=== PATIENT | female | born 1940 | race Caucasian/White ===

== ENCOUNTER 2018-10-14 22:32 | Inpatient (IN) | payer OTHER ==
[~2018-10-14] VITALS: Ht 152.4 cm; Wt 82.8 kg
[2018-10-14 23:17] VITALS: BP 140/63; PULSE 78; RESP 22; Ht 152.4 cm; Wt 82.8 kg
[2018-10-15] VITALS (12 sets, daily range): BP systolic 111–128; BP diastolic 55–60; PULSE 75–95; RESP 16–24
[2018-10-15] MEDS ORDERED: NACL 0.9% 3 ML SYG IV SCH (00:30)
[2018-10-15] MEDS ORDERED: ONDANSETRON 4 MG INJ IV PRN (00:30)
[2018-10-15] MEDS ORDERED: ACETAMINOPHEN 325 MG TAB PO PRN (00:30)
--- NOTE | 2018-10-15 00:35 | HP ---
Date/Time of Note Date/Time of Note DATE: 10/15/18 TIME: 00:35 Assessment/Plan VTE Prophylaxis SCD applied (from Ns): Yes Pharmacological prophylaxis: NA/contraindicated Pharm contraindication: low risk/ambulating Assessment/Plan Hospital Course This is a 69-year female being admitted to the telemetry floor for: #1 acute on chronic asthma exacerbation: DuoNeb every 4 hours, IV Solu-Medrol for the first 24 hours followed by prednisone burst., continue home inhalers #2 suspect community-acquired pneumonia: Chest x-ray shows possible right-sided consolidation: Patient at the current time is afebrile. Levaquin 750 mg IV x 5 days, switch to p.o. as tolerated #3 Hypertension: Continue amlodipine #4 obesity: We will check hemoglobin A 1C, lipid panel, TSH 5 DVT GI prophylaxis: SCDs, Protonix Further treatment strategy will be implemented as per the clinical course. HPI/ROS Admit Date/Time Admit Date/Time Oct 14, 2018 at 22:32 Hx of Present Illness Chief complaint: Cough This is a 77-year-old female who presented originally to [facility] to [place] with complaints of cough times 3 days. She reported was a productive cough. SHe did report shortness of breath and productive of yellow sputum. Denies any fever chills or chest pain. Patient was noted to have wheezing on examination. Pertinent laboratory findings: White blood cells 10.8/hemoglobin 12.6/hematocrit 37.3/platelet count 324 Sodium 130/potassium 2.5/chloride 98/carbon dioxide 29/BUN 11/creatinine 0.5 CPK 63 troponin less than 0.06 patient did receive albuterol and Levaquin in the ED EKG: Normal sinus rhythm at approximately [address] or T wave abnormalities noted for any acute ischemia. Allergies: NKDA Medications: See NOV ROS Const: As per HPI Eyes : No pain discharge or redness or change in visual acuity ENT: No pain, sore throat, congestion, congestion, dysphagia or discharge Respiratory: As per HPI Cardiovascular: No chest pain, palpitation, PND, or edema GI : no change in appetite, abdominal pain, nausea, vomiting, diarrhea, constipation, or change in the color his stool Genitourinary: No dysuria, hematuria, flank pain , discharge or CVA tenderness Musculoskeletal: No joint pain, back pain, neck pain, restricted range of motion in neck or joints Skin: No rash, bruising or hives Neuro: No headache, dizziness, syncope, seizure, focal weakness Endocrine: No polyuria, polydipsia, temperature intolerance Psych: No hallucination, depression, anxiety or suicidal ideation PMH/Family/Social Past Medical History Hypertension, asthma Coded Allergies: No Known Allergy (Unverified , 10/15/18) Past Surgical History Right eye cataract surgery Family History Significant Family History: no pertinent family hx Social History Alcohol Use: none Smoking Status: Never smoker Drug Use: none Exam/Review of Systems Vital Signs Vitals Temp 98.5 Heart rate 77 Respirations 22 BP 140/63 SPO2 97% on 3 L Exam Exam General: Patient is a pleasant female currently lying in bed with productive cough and wheezing HEENT: Atraumatic, normocephalic. The pupils are equal, round and reactive. Extraocular motor are intact Neck: Supple with full range of motion. No rigidity or meningismus Chest: Nontender Lungs: Coarse breath sounds bilaterally, mild expiratory wheezes Heart: Normal S1-S2, Regular rhythm and rate. Abdomen: Soft , nontender, nondistended , bowel sounds are present. No guarding no rebound tenderness , No masses or organomegaly. No costovertebral temporal angle mass Extremities: Normal to inspection, no edema no cyanosis Neurologic: Normal mental status, speech normal, cranial nerves II through XII are intact, motor and sensory are intact Additional Comments PROCEDURE: Chest x-ray CLINICAL INDICATION: COPD. TECHNIQUE: VIEWS: 1 COMPARISON: None FINDINGS: SUPPORT DEVICES: None CARDIAC AND MEDIASTINAL SILHOUETTES: Cardiomegaly with aortic atherosclerosis. LUNGS AND PLEURAL SPACE: Dense opacification of the right infrahilar region through the base representing atelectasis or consolidation. . Mild elevation of the left diaphragm with adjacent compressive subsegmental atelectasis. No CHF or pleural effusion PNEUMOTHORAX: None. OSSEOUS STRUCTURES: Unremarkable. IMPRESSION: 1. Right infrahilar through base atelectasis or consolidation. 2. Elevated left diaphragm with adjacent compressive subsegmental atelectasis. 3. Cardiomegaly with aortic atherosclerosis. RPTAT: HRSR Wen Kolb Physician Date Time Electronically viewed and signed by Wen Kolb, Physician on 10/15/2018 02:22 RR/ CC: OLENA LOUISE [phone] OLENA LOUISE Oct 15, 2018 00:35
[2018-10-15] MEDS ORDERED: DICL50TA11 PO (00:41)
[2018-10-15] MEDS ORDERED: FLUT1AER4 IH (00:41)
[2018-10-15] MEDS ORDERED: AMLO-145 PO (00:41)
[2018-10-15] MEDS ORDERED: ALBUTEROL/IPRATROPIUM (NEB) 3 ML AMP HHN PRN (01:00)
[2018-10-15] MEDS: ALBUTEROL/IPRATROPIUM (NEB) 3 ML AMP HHN SCH ×6 (01:04→22:47)
--- NOTE | 2018-10-15 01:23 | NUR ---
Admission note: Arrival time: 2244 Blood cultures drawn at: 0045 Home meds reconciled: Amlodipine, Steroid inhaler, pain medications. A&Ox4, tristanian speaking, expiratory wheezing. RT PRN duoneb ordered. NC 3 LPM, saturating 95%, otherwise assessment is unremarkable. Hx asthma noted. Awaiting blood cultures for administration of Levofloxacin therapy IV.
[2018-10-15] MEDS: METHYLPREDNISOLONE 40 MG INJ IV SCH ×4 (01:50→22:49)
[2018-10-15] MEDS: LEVOFLOXACIN 750MG/D5W (PMX) 150 ML IVPB SCH (03:02)
[2018-10-15] MEDS ORDERED: PANTOPRAZOLE 40 MG INJ IV SCH (06:00)
--- NOTE | 2018-10-15 06:59 | NUR ---
EOSS N: A&Ox4, R: Currently NC 4LPM, saturating on 92-95%, mild expiratory wheezing, improving with respiratory treatments. CV: Unremarkable. Afebrile. GI: Cardiac diet : Ambulates 1x assist to toilet CXR taken, blood cultures x2, broad spectrum abx started. Bed in locked and low position. All of patient's needs attended to. Will endorse to AM nurse. POC: Continue IV abx, respiratory treatments.
[2018-10-15] MEDS: FLUTICASONE/VILANTEROL 100-25 INH SCH (08:40)
[2018-10-15] MEDS: AMLODIPINE 5 MG TAB PO SCH (08:40)
[2018-10-15] MEDS: DICLOFENAC (EC) 25 MG TAB PO SCH ×2 (08:40→20:50)
--- NOTE | 2018-10-15 11:09 | NUR ---
SW: AHCD & INITIAL PSYCHOSOCIAL ASSESSMENT SW met with 77-year-old Telugu speaking female and her with road machine runner at bedside regarding AHCD. Patient denies having an AHCD, and she verbally designated her Ramez ([phone]/ [phone]) as her primary surrogate spokesperson, and her grandson Tate Dhillon ([phone]) as her secondary surrogate spokesperson. Patient states she lives with her and grandson Tate at [address] [place] [address] #[place] [address]. States that she is retired and receives SS benefits. Patient states that she is independent at home with ADL's, but states she receives informal care from her spouse, daughter in law and grandson. States that her primary mode of transportation is medical transport. Patient denies having any questions or concerns at this time. Supervising Producer remains available as needed throughout patient's treatment process.
--- NOTE | 2018-10-15 13:41 | PN ---
Date/Time of Note Date/Time of Note DATE: 10/15/18 TIME: 13:35 Assessment/Plan VTE Prophylaxis Risk score (from Ns)>0 risk: 5 SCD applied (from Ns): Yes Pharmacological prophylaxis: LMWH Lines/Catheters IV Catheter Type (from Nrs): Peripheral IV Urinary Cath still in place: No Assessment/Plan Assessment/Plan 1. Community acquired pneumonia, on levaquin 2. Asthma, probably COPD, on neb, levaquin and prednisone 3. HTN, controlled with norvasc 4. DVT prophylaxis: lovenox Result Diagram: 10/15/189910/15/1899 Results 24hrs Laboratory Tests Test 10/15/18 01:00 10/15/18 02:00 White Blood Count 9.2 Red Blood Count 3.89 L Hemoglobin 12.0 Hematocrit 36.3 L Mean Corpuscular Volume 93.3 Mean Corpuscular Hemoglobin 30.8 Mean Corpuscular Hemoglobin Concent 33.1 Red Cell Distribution Width 12.7 Platelet Count 274 Mean Platelet Volume 8.9 Immature Granulocytes % 0.400 Neutrophils % 61.6 Lymphocytes % 29.6 Monocytes % 7.2 Eosinophils % 1.1 Basophils % 0.1 Nucleated Red Blood Cells % 0.0 Immature Granulocytes # 0.040 H Neutrophils # 5.6 Lymphocytes # 2.7 Monocytes # 0.7 Eosinophils # 0.1 Basophils # 0.0 Nucleated Red Blood Cells # 0.0 Sodium Level 141 Potassium Level 3.7 Chloride Level 107 Carbon Dioxide Level 25 Anion Gap 9 Blood Urea Nitrogen 12 Creatinine 0.49 Est Glomerular Filtrat Rate mL/min Glucose Level 103 Hemoglobin A1c 5.6 Lactic Acid Level 0.8 Calcium Level 8.9 Magnesium Level 2.1 Total Bilirubin 0.4 Direct Bilirubin 0.00 Indirect Bilirubin 0.4 Aspartate Amino Transf (AST/SGOT) 24 Alanine Aminotransferase (ALT/SGPT) 18 Alkaline Phosphatase 88 Total Protein 7.4 Albumin 3.7 Globulin 3.70 H Albumin/Globulin Ratio 1.00 Triglycerides Level 56 Cholesterol Level 192 LDL Cholesterol, Calculated 133 HDL Cholesterol 48 Cholesterol/HDL Ratio 4.0 Thyroid Stimulating Hormone (TSH) 1.890 Urine Color YELLOW Urine Clarity SLIGHTLY CLOUDY A Urine pH 5.0 Urine Specific Longs 1.025 Urine Ketones NEGATIVE Urine Nitrite NEGATIVE Urine Bilirubin NEGATIVE Urine Urobilinogen 2+ H Urine Leukocyte Esterase NEGATIVE Urine Microscopic RBC 5 Urine Microscopic WBC 8 H Urine Squamous Epithelial Cells FEW Urine Mucus FEW A Urine Hemoglobin 2+ H Urine Glucose NEGATIVE Urine Total Protein NEGATIVE Subjective 24 Hr Interval Summary Free Text/Dictation shortness of breath, cough with yellowish sputum Exam/Review of Systems Vital Signs Vitals Vital Signs Date Temp Pulse Resp B/P (MAP) Pulse Ox O2 O2 Flow FiO2 Time Delivery Rate 10/15/18 91 20 94 Nasal 4.0 13:29 Cannula 10/15/18 98.0 118/58 11:31 (78) Intake and Output 10/14/18 10/14/18 10/15/18 1515:00 23:00 07:00 IntakeIntake Total 150 ml BalanceBalance 150 ml Exam Constitutional: alert, oriented, well developed Psych: no complaints, nl mood/affect Head: normocephalic, atraumatic Eyes: nl conjunctiva, EOMI, nl lids, nl sclera, PERRL ENMT: nl external ears & nose, nl lips & teeth, nl nasal mucosa & septum Neck: supple, non-tender Respiratory: crackles/rales, wheezing Cardiovascular: regular rate and rhythm, nl pulses; No bruits, No diastolic murmur, No edema, No gallop, No irregular rhythm, No jugular venous distention (JVD), No murmurs/extra sounds, No rub, No systolic murmur, No S3, No S4, No other Gastrointestinal: soft, nl liver, spleen, non-tender Musculoskeletal: nl extremities to inspection; No joint tenderness, No muscle tone, No muscle weakness, No range of motion, No spine non-tender, No swelling, No other Extremities: normal pulses; No calf tenderness, No cyanosis, No clubbing, No edema, No pitting pedal edema, No palpable cord, No tenderness, No other Neurological: 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 intact, nl mental status, nl speech, nl strength Medications Medications Current Medications IV Flush (NS 3 ml) 3 ml PER PROTOCOL IV ; Start 10/15/18 at 00:30 Ondansetron HCl (Zofran Inj) 4 mg Q6H PRN IV NAUSEA AND/OR VOMITING; Start 10/15/18 at 00:30 Acetaminophen (Tylenol Tab) 650 mg Q6H PRN PO PAIN LEVEL 1-3 OR FEVER; Start 10/15/18 at 00:30 Docusate Sodium (Colace) 100 mg Q12H PRN PO CONSTIPATION; Start 10/15/18 at 00:30 Bisacodyl (Dulcolax) 5 mg DAILY PRN PO CONSTIPATION; Start 10/15/18 at 00:30 Pantoprazole (Protonix Iv) 40 mg DAILY@06 IV Last administered on 10/15/18at 05:56; Admin Dose 40 MG; Start 10/15/18 at 06:00 Albuterol/ Ipratropium (Duoneb) 3 ml Q4H RESP THERAPY PRN HHN WHEEZING; Start 10/15/18 at 01:00 Albuterol/ Ipratropium (Duoneb) 3 ml Q4H RESP THERAPY HHN Last administered on 10/15/18at 13:29; Admin Dose 3 ML; Start 10/15/18 at 01:00 Methylprednisolone Sodium Succinate (Solu-Medrol) 30 mg Q8 IV Last administered on 10/15/18at 05:56; Admin Dose 30 MG; Start 10/15/18 at 01:00; Stop 10/16/18 at 00:59 Levofloxacin/ Dextrose 150 ml @ 100 mls/hr Q24H IVPB Last administered on 03:02; Admin Dose 100 MLS/HR; Start 10/15/18 at 02:00 Amlodipine Besylate (Norvasc) 5 mg DAILY PO Last administered on 10/15/18 08:40; Admin Dose 5 MG; Start 10/15/18 at 09:00 Diclofenac Sodium (Voltaren) 50 mg BID PO Last administered on 10/15/18at 08:40; Admin Dose 50 MG; Start 10/15/18 at 09:00 Fluticasone/ Vilanterol (Breo Ellipta 100-25 Mcg Inh) 1 inh DAILY INH Last administered on 10/15/18 08:40; Admin Dose 1 INH; Start 10/15/18 at 09:00 Prednisone (Prednisone) 40 mg DAILY PO ; Start 10/16/18 at 09:00; Stop 10/20/18 at 08:59 TONYA MENDEZ MD Oct 15, 2018 13:41
[2018-10-15] MEDS: ENOXAPARIN 30 MG/0.3 ML SYG SC SCH (14:14)
--- NOTE | 2018-10-15 19:00 | NUR ---
EOSS: . PT DX PNA.WHEEZING NOTED.PT ON O2 3L NC.ON INDUSTRIAL ROOFER THERAPY. ABLE TO AMBULATE TO BRP.ALL NEEDS MET.CONTINUE POC.
[2018-10-15] MEDS: DOCUSATE SODIUM 100 MG CAP PO PRN (20:49)
[2018-10-16] VITALS (12 sets, daily range): BP systolic 101–127; BP diastolic 50–62; PULSE 81–105; RESP 18–20
--- NOTE | 2018-10-16 01:40 | NUR ---
Nursing Note: Pt refuses bed alarm. Pt a/o X4 and has steady gait. Pt calls for assistance in disconnecting SCDs when she needs to go to the bathroom. teasel gig operator aware.
[2018-10-16] MEDS: ALBUTEROL/IPRATROPIUM (NEB) 3 ML AMP HHN SCH ×6 (01:58→21:44)
[2018-10-16] MEDS: LEVOFLOXACIN 750MG/D5W (PMX) 150 ML IVPB SCH (02:27)
[2018-10-16] MEDS: PANTOPRAZOLE (EC) 40 MG TAB PO SCH (06:25)
--- NOTE | 2018-10-16 07:00 | NUR ---
EOSS: Patient resting comfortably in stable condition. Pt a/o X4 and on 5.0 L NC. Right hand and lower arm swollen due to infiltrated IV. VS stable. Will endorse to oncoming RN.
[2018-10-16] MEDS: DICLOFENAC (EC) 25 MG TAB PO SCH ×2 (09:48→20:16)
[2018-10-16] MEDS: predniSONE 20 MG TAB PO SCH (09:48)
[2018-10-16] MEDS: AMLODIPINE 5 MG TAB PO SCH (09:49)
[2018-10-16] MEDS: FLUTICASONE/VILANTEROL 100-25 INH SCH (09:49)
[2018-10-16] MEDS: ENOXAPARIN 30 MG/0.3 ML SYG SC SCH (09:56)
[2018-10-16] MEDS ORDERED: VITAMIN A & D 5 GM OINT PACKET TOP ONE (10:00)
--- NOTE | 2018-10-16 15:52 | PN ---
Date/Time of Note Date/Time of Note DATE: 10/16/18 TIME: 15:46 Assessment/Plan VTE Prophylaxis Risk score (from Ns)>0 risk: 9 SCD applied (from Ns): Yes Pharmacological prophylaxis: LMWH Lines/Catheters IV Catheter Type (from Nrs): Saline Lock Urinary Cath still in place: No Assessment/Plan Assessment/Plan 1. Community acquired pneumonia, on levaquin 2. Asthma, probably COPD, on neb, levaquin and prednisone 3. HTN, controlled with norvasc 4. DVT prophylaxis: lovenox Result Diagram: 10/16/18 0500 10/16/18 0500 Results 24hrs Laboratory Tests Test 10/16/18 05:00 White Blood Count 7.3 # Red Blood Count 3.72 L Hemoglobin 11.6 L Hematocrit 34.3 L Mean Corpuscular Volume 92.2 Mean Corpuscular Hemoglobin 31.2 Mean Corpuscular Hemoglobin Concent 33.8 Red Cell Distribution Width 12.4 Platelet Count 301 Mean Platelet Volume 9.3 Immature Granulocytes % 0.500 H Neutrophils % 86.6 H Lymphocytes % 7.4 L Monocytes % 5.5 Eosinophils % 0.0 Basophils % 0.0 Nucleated Red Blood Cells % 0.0 Immature Granulocytes # 0.040 H Neutrophils # 6.3 Lymphocytes # 0.5 L Monocytes # 0.4 Eosinophils # 0.0 Basophils # 0.0 Nucleated Red Blood Cells # 0.0 Sodium Level 137 Potassium Level 3.6 Chloride Level 104 Carbon Dioxide Level 25 Anion Gap 8 Blood Urea Nitrogen 22 H Creatinine 0.56 Est Glomerular Filtrat Rate mL/min Glucose Level 199 Calcium Level 9.3 Exam/Review of Systems Vital Signs Vitals Vital Signs Date Temp Pulse Resp B/P (MAP) Pulse Ox O2 O2 Flow FiO2 Time Delivery Rate 10/16/18 97.9 88 18 108/56 92 Nasal 15:21 (73) Cannula 10/16/18 5.0 15:00 10/16/18 36 02:02 Intake and Output 10/15/18 10/15/18 10/16/18 1414:59 22:59 06:59 IntakeIntake Total 500 ml 950 ml 650 ml BalanceBalance 500 ml 950 ml 650 ml Exam Constitutional: alert, oriented, well developed Head: normocephalic, atraumatic Eyes: nl conjunctiva, EOMI, nl lids ENMT: nl external ears & nose, nl lips & teeth, nl nasal mucosa & septum Neck: supple, non-tender Respiratory: crackles/rales Cardiovascular: regular rate and rhythm, nl pulses; No bruits, No diastolic murmur, No edema, No gallop, No irregular rhythm, No jugular venous distention (JVD), No murmurs/extra sounds, No rub, No systolic murmur, No S3, No S4, No other Gastrointestinal: soft, nl liver, spleen, non-tender Musculoskeletal: nl extremities to inspection Extremities: normal pulses; No calf tenderness, No cyanosis, No clubbing, No edema, No pitting pedal edema, No palpable cord, No tenderness, No other Neurological: WATERSIDE WORKER II-XII intact, nl mental status, nl speech, nl strength Skin: nl turgor Medications Medications Current Medications IV Flush (NS 3 ml) 3 ml PER PROTOCOL IV ; Start 10/15/18 at 00:30 Ondansetron HCl (Zofran Inj) 4 mg Q6H PRN IV NAUSEA AND/OR VOMITING; Start 10/15/18 at 00:30 Acetaminophen (Tylenol Tab) 650 mg Q6H PRN PO PAIN LEVEL 1-3 OR FEVER; Start 10/15/18 at 00:30 Docusate Sodium (Colace) 100 mg Q12H PRN PO CONSTIPATION Last administered on 10/15/18at 20:49; Admin Dose 100 MG; Start 10/15/18 at 00:30 Bisacodyl (Dulcolax) 5 mg DAILY PRN PO CONSTIPATION; Start 10/15/18 at 00:30 Albuterol/ Ipratropium (Duoneb) 3 ml Q4H RESP THERAPY PRN HHN WHEEZING; Start 10/15/18 at 01:00 Albuterol/ Ipratropium (Duoneb) 3 ml Q4H RESP THERAPY HHN Last administered on 10/16/18at 15:06; Admin Dose 3 ML; Start 10/15/18 at 01:00 Levofloxacin/ Dextrose 150 ml @ 100 mls/hr Q24H IVPB Last administered on 10/16/18at 02:27; Admin Dose 100 MLS/HR; Start 10/15/18 at 02:00 Amlodipine Besylate (Norvasc) 5 mg DAILY PO Last administered on 10/16/18at 09:49; Admin Dose 5 MG; Start 10/15/18 at 09:00 Diclofenac Sodium (Voltaren) 50 mg BID PO Last administered on 10/16/18 09:48; Admin Dose 50 MG; Start 10/15/18 at 09:00 Fluticasone/ Vilanterol (Breo Ellipta 100-25 Mcg Inh) 1 inh DAILY INH Last administered on 10/16/18 09:49; Admin Dose 1 INH; Start 10/15/18 at 09:00 Prednisone (Prednisone) 40 mg DAILY PO Last administered on 10/16/18 09:48; Admin Dose 40 MG; Start 10/16/18 at 09:00; Stop 10/20/18 at 08:59 Enoxaparin Sodium (Lovenox) 30 mg DAILY SC Last administered on 10/16/18 09:56; Admin Dose 30 MG; Start 10/15/18 at 14:00 Pantoprazole (Protonix Tab) 40 mg DAILY@06 PO Last administered on 10/16/18 06:25; Admin Dose 40 MG; Start 10/16/18 at 06:00 TONYA MENDEZ MD Oct 16, 2018 15:52
--- NOTE | 2018-10-16 18:35 | NUR ---
EOSS Patient stable, sinus tachycardia intermittently in low 100s, denies pain, wheezing present in bilateral upper lobes and breath sounds are diminished at bases, patient reports shortness of breath upon exertion, continued with 5L O2 NC and scheduled breathing treatments, skin intact, ambulatory with assist, resting comfortably, will endorse to night coordinator.
[2018-10-16] MEDS: DOCUSATE SODIUM 100 MG CAP PO PRN (20:23)
[2018-10-17] VITALS (10 sets, daily range): BP systolic 112–133; BP diastolic 57–88; PULSE 78–101; RESP 18–20
[2018-10-17] MEDS: ALBUTEROL/IPRATROPIUM (NEB) 3 ML AMP HHN SCH ×6 (01:30→20:22)
[2018-10-17] MEDS: LEVOFLOXACIN 750 MG TABLET PO SCH (06:11)
[2018-10-17] MEDS: PANTOPRAZOLE (EC) 40 MG TAB PO SCH (06:11)
--- NOTE | 2018-10-17 07:00 | NUR ---
EOSS: Patient resting comfortably in stable condition. Pt a/o X4 and on 4.0 L NC. VS stable. Will endorse to oncoming RN.
[2018-10-17] MEDS: DICLOFENAC (EC) 25 MG TAB PO SCH ×2 (08:40→20:15)
[2018-10-17] MEDS: predniSONE 20 MG TAB PO SCH (08:41)
[2018-10-17] MEDS: FLUTICASONE/VILANTEROL 100-25 INH SCH (08:42)
[2018-10-17] MEDS: AMLODIPINE 5 MG TAB PO SCH (08:42)
[2018-10-17] MEDS: ENOXAPARIN 30 MG/0.3 ML SYG SC SCH (08:59)
--- NOTE | 2018-10-17 14:49 | PN ---
Date/Time of Note Date/Time of Note DATE: 10/17/18 TIME: 14:47 Assessment/Plan VTE Prophylaxis Risk score (from Ns)>0 risk: 5 SCD applied (from Ns): Yes Pharmacological prophylaxis: LMWH Lines/Catheters IV [facility] Type (from [facility] Saline Lock Urinary Cath still in place: No Assessment/Plan Assessment/Plan 1. Community acquired pneumonia, on levaquin 2. Asthma, probably COPD, on neb, levaquin, mucomyst, solumedrol 3. HTN, controlled with norvasc 4. DVT prophylaxis: lovenox Result Diagram: 10/16/18 0500 10/16/18 0500 Subjective 24 Hr Interval Summary Free Text/Dictation cough with difficulty in bringing sputum out Exam/Review of Systems Vital Signs Vitals Vital Signs Date Temp Pulse Resp B/P (MAP) Pulse Ox O2 O2 Flow FiO2 Time Delivery Rate 10/17/18 100 22 94 Nasal 5.0 13:36 Cannula 10/17/18 98.0 112/88 12:04 (96) 10/17/18 40 05:26 Intake and Output 10/16/18 10/16/18 10/17/18 1515:00 23:00 07:00 IntakeIntake Total 950 ml 500 ml BalanceBalance 950 ml 500 ml Exam Constitutional: alert, oriented, well developed Psych: no complaints, nl mood/affect Head: normocephalic, atraumatic Eyes: nl conjunctiva, EOMI, nl lids, PERRL ENMT: nl external ears & nose, nl lips & teeth, nl nasal mucosa & septum Neck: supple, non-tender Respiratory: crackles/rales, wheezing Cardiovascular: regular rate and rhythm, nl pulses; No bruits, No diastolic murmur, No edema, No gallop, No irregular rhythm, No jugular venous distention (JVD), No murmurs/extra sounds, No rub, No systolic murmur, No S3, No S4, No other Gastrointestinal: soft, nl liver, spleen, non-tender Musculoskeletal: nl extremities to inspection Extremities: normal pulses; No calf tenderness, No cyanosis, No clubbing, No edema, No pitting pedal edema, No palpable cord, No tenderness, No other Neurological: RESEARCH CENTER DIRECTOR II-XII intact, nl mental status, nl speech, nl strength Medications Medications Current Medications IV Flush (NS 3 ml) 3 ml PER PROTOCOL IV ; Start 10/15/18 at 00:30 Ondansetron HCl (Zofran Inj) 4 mg Q6H PRN IV NAUSEA AND/OR VOMITING; Start 10/15/18 at 00:30 Acetaminophen (Tylenol Tab) 650 mg Q6H PRN PO PAIN LEVEL 1-3 OR FEVER; Start 10/15/18 at 00:30 Docusate Sodium (Colace) 100 mg Q12H PRN PO CONSTIPATION Last administered on 10/16/18 20:23; Admin Dose 100 MG; Start 10/15/18 at 00:30 Bisacodyl (Dulcolax) 5 mg DAILY PRN PO CONSTIPATION; Start 10/15/18 at 00:30 Albuterol/ Ipratropium (Duoneb) 3 ml Q4H RESP THERAPY PRN HHN WHEEZING; Start 10/15/18 at 01:00 Albuterol/ Ipratropium (Duoneb) 3 ml Q4H RESP THERAPY HHN Last administered on 10/17/18at 13:38; Admin Dose 3 ML; Start 10/15/18 at 01:00 Amlodipine Besylate (Norvasc) 5 mg DAILY PO Last administered on 10/17/18 08:42; Admin Dose 5 MG; Start 10/15/18 at 09:00 Diclofenac Sodium (Voltaren) 50 mg BID PO Last administered on 10/17/18 08:40; Admin Dose 50 MG; Start 10/15/18 at 09:00 Fluticasone/ Vilanterol (Breo Ellipta 100-25 Mcg Inh) 1 inh DAILY INH Last administered on 10/17/18 08:42; Admin Dose 1 INH; Start 10/15/18 at 09:00 Prednisone (Prednisone) 40 mg DAILY PO Last administered on 10/17/18 08:41; Admin Dose 40 MG; Start 10/16/18 at 09:00; Stop 10/20/18 at 08:59 Enoxaparin Sodium (Lovenox) 30 mg DAILY SC Last administered on 10/17/18 08:59; Admin Dose 30 MG; Start 10/15/18 at 14:00 Pantoprazole (Protonix Tab) 40 mg DAILY@06 PO Last administered on 10/17/18at 06:11; Admin Dose 40 MG; Start 10/16/18 at 06:00 Levofloxacin (Levaquin) 750 mg DAILY@06 PO Last administered on 10/17/18at 06:11; Admin Dose 750 MG; Start 10/17/18 at 06:00 TONYA MENDEZ MD Oct 17, 2018 14:49
--- NOTE | 2018-10-17 15:00 | NUR ---
patient was complaining of dry nose, dry throat, difficulty to cough out phlegm, interpretative service used and spoke to Norris, Dr Alarcon was notified.
[2018-10-17] MEDS: METHYLPREDNISOLONE 40 MG INJ IV SCH (17:52)
--- NOTE | 2018-10-17 19:28 | NUR ---
EOSS: NO SIGNIFICANT CHANGE OF CONDITION CONTINUE CURRENT PLAN OF CARE.
[2018-10-17] MEDS: ACETYLCYSTEINE 20% 4 ML VIAL NEB SCH (20:22)
[2018-10-18 00:07] VITALS: BP 123/58; PULSE 95; RESP 18
[2018-10-18] MEDS: METHYLPREDNISOLONE 40 MG INJ IV SCH ×5 (00:40→23:14)
[2018-10-18] MEDS: ACETYLCYSTEINE 20% 4 ML VIAL NEB SCH ×4 (01:44→20:22)
[2018-10-18] MEDS: ALBUTEROL/IPRATROPIUM (NEB) 3 ML AMP HHN SCH ×6 (01:44→20:22)
[2018-10-18] MEDS: LEVOFLOXACIN 750 MG TABLET PO SCH (05:04)
[2018-10-18] MEDS: PANTOPRAZOLE (EC) 40 MG TAB PO SCH (05:04)
--- NOTE | 2018-10-18 06:42 | NUR ---
end of shift note: pt stable overnight, oxygen sat maintaining 94% and above with 5L of oxygen via NC, waiting for bed available to [facility] transfer. continue to monitor pt
[2018-10-18 07:30] VITALS: BP 131/64; PULSE 96; RESP 20
[2018-10-18] MEDS: FLUTICASONE/VILANTEROL 100-25 INH SCH (09:27)
[2018-10-18] MEDS: DICLOFENAC (EC) 25 MG TAB PO SCH ×2 (09:28→20:50)
[2018-10-18] MEDS: AMLODIPINE 5 MG TAB PO SCH (09:28)
[2018-10-18] MEDS: ENOXAPARIN 30 MG/0.3 ML SYG SC SCH (09:50)
--- NOTE | 2018-10-18 11:00 | NUR ---
NURSE ASSESSMENT NOTE A/OX4, DENIES PAIN, DEMONSTRATES USE OF CALL LIGHT, BED ALARM ENGAGED, SOB C AE, CONTINUE MEDICATIONS PER ORDER, CONTINUE TO MONITOR
[2018-10-18 11:03] VITALS: BP 124/66; PULSE 105; RESP 20
[2018-10-18] MEDS: DOCUSATE SODIUM 100 MG CAP PO PRN (12:05)
[2018-10-18] MEDS: BISACODYL (EC) 5 MG TAB PO PRN (12:05)
[2018-10-18 15:06] VITALS: BP 112/55; PULSE 97; RESP 20
--- NOTE | 2018-10-18 15:26 | PN ---
Date/Time of Note Date/Time of Note DATE: 10/18/18 TIME: 15:25 Assessment/Plan VTE Prophylaxis Risk score (from Ns)>0 risk: 7 SCD applied (from Ns): Yes Pharmacological prophylaxis: LMWH Lines/Catheters IV [facility] (from [facility] Saline Lock Urinary Cath still in place: No Assessment/Plan Assessment/Plan 1. Community acquired pneumonia, on levaquin 2. Asthma, probably COPD, on neb, levaquin, mucomyst, solumedrol 3. HTN, controlled with norvasc 4. DVT prophylaxis: lovenox Result Diagram: 10/18/1818 10/18/1818 Results 24hrs Laboratory Tests Test 10/18/18 06:18 White Blood Count 5.5 # Red Blood Count 3.98 L Hemoglobin 12.2 Hematocrit 36.8 L Mean Corpuscular Volume 92.5 Mean Corpuscular Hemoglobin 30.7 Mean Corpuscular Hemoglobin Concent 33.2 Red Cell Distribution Width 12.5 Platelet Count 327 Mean Platelet Volume 9.0 Immature Granulocytes % 2.000 H Neutrophils % 79.1 H Lymphocytes % 16.2 Monocytes % 2.7 Eosinophils % 0.0 Basophils % 0.0 Nucleated Red Blood Cells % 0.0 Immature Granulocytes # 0.110 H Neutrophils # 4.3 Lymphocytes # 0.9 Monocytes # 0.2 L Eosinophils # 0.0 Basophils # 0.0 Nucleated Red Blood Cells # 0.0 Sodium Level 137 Potassium Level 4.1 Chloride Level 101 Carbon Dioxide Level 29 Anion Gap 7 Blood Urea Nitrogen 15 Creatinine 0.44 Est Glomerular Filtrat Rate mL/min Glucose Level 151 Calcium Level 9.0 Subjective 24 Hr Interval Summary Free Text/Dictation less cough and shortness of breath Exam/Review of Systems Vital Signs Vitals Vital Signs Date Temp Pulse Resp B/P (MAP) Pulse Ox O2 O2 Flow FiO2 Time Delivery Rate 10/18/18 98.0 97 20 112/55 92 Nasal 15:06 (74) Cannula 10/18/18 5.0 14:12 10/17/18 40 05:26 Intake and Output 10/17/18 10/17/18 10/18/18 1515:00 23:00 07:00 IntakeIntake Total 480 ml BalanceBalance 480 ml Exam Constitutional: alert, oriented, well developed Psych: no complaints, nl mood/affect Head: normocephalic, atraumatic Eyes: nl conjunctiva, EOMI, nl lids, nl sclera, PERRL ENMT: nl external ears & nose, nl lips & teeth, nl nasal mucosa & septum Neck: supple, non-tender Respiratory: crackles/rales Cardiovascular: regular rate and rhythm, nl pulses; No bruits, No diastolic murmur, No edema, No gallop, No irregular rhythm, No jugular venous distention (JVD), No murmurs/extra sounds, No rub, No systolic murmur, No S3, No S4, No other Gastrointestinal: soft, nl liver, spleen, non-tender Musculoskeletal: nl extremities to inspection Extremities: normal pulses; No calf tenderness, No cyanosis, No clubbing, No edema, No pitting pedal edema, No palpable cord, No tenderness, No other Neurological: ECONOMIC MANAGER II-XII intact, nl mental status, nl speech, nl strength Medications Medications Current Medications IV Flush (NS 3 ml) 3 ml PER PROTOCOL IV ; Start 10/15/18 at 00:30 Ondansetron HCl (Zofran Inj) 4 mg Q6H PRN IV NAUSEA AND/OR VOMITING; Start 10/15/18 at 00:30 Acetaminophen (Tylenol Tab) 650 mg Q6H PRN PO PAIN LEVEL 1-3 OR FEVER; Start 10/15/18 at 00:30 Docusate Sodium (Colace) 100 mg Q12H PRN PO CONSTIPATION Last administered on 10/18/18at 12:05; Admin Dose 100 MG; Start 10/15/18 at 00:30 Bisacodyl (Dulcolax) 5 mg DAILY PRN PO CONSTIPATION Last administered on 10/18/18at 12:05; Admin Dose 5 MG; Start 10/15/18 at 00:30 Albuterol/ Ipratropium (Duoneb) 3 ml Q4H RESP THERAPY PRN HHN WHEEZING; Start 10/15/18 at 01:00 Albuterol/ Ipratropium (Duoneb) 3 ml Q4H RESP THERAPY HHN Last administered on 10/18/18at 13:11; Admin Dose 3 ML; Start 10/15/18 at 01:00 Amlodipine Besylate (Norvasc) 5 mg DAILY PO Last administered on 10/18/18at 09:28; Admin Dose 5 MG; Start 10/15/18 at 09:00 Diclofenac Sodium (Voltaren) 50 mg BID PO Last administered on 10/18/18at 09:28; Admin Dose 50 MG; Start 10/15/18 at 09:00 Fluticasone/ Vilanterol (Breo Ellipta 100-25 Mcg Inh) 1 inh DAILY INH Last administered on 10/18/18at 09:27; Admin Dose 1 INH; Start 10/15/18 at 09:00 Enoxaparin Sodium (Lovenox) 30 mg DAILY SC Last administered on 10/18/18at 09:50; Admin Dose 30 MG; Start 10/15/18 at 14:00 Pantoprazole (Protonix Tab) 40 mg DAILY@06 PO Last administered on 10/18/18at 05:04; Admin Dose 40 MG; Start 10/16/18 at 06:00 Levofloxacin (Levaquin) 750 mg DAILY@06 PO Last administered on 10/18/18at 05:04; Admin Dose 750 MG; Start 10/17/18 at 06:00 Acetylcysteine (Mucomyst) 2 ml Q6H RESP THERAPY NEB Last administered on 10/18/18at 13:11; Admin Dose 2 ML; Start 10/17/18 at 20:00 Methylprednisolone Sodium Succinate (Solu-Medrol) 40 mg Q6 IV Last administered on 10/18/18at 12:05; Admin Dose 40 MG; Start 10/17/18 at 18:00 TONYA MENDEZ MD Oct 18, 2018 15:26
--- NOTE | 2018-10-18 17:50 | NUR ---
END OF SHIFT NOTE DENIES PAIN, UP TO CHAIR FOR MEALS, ABLE TO CALL FOR ASSIST, SOB C AE, M/S STATUS PENDING BED
[2018-10-18 20:26] VITALS: BP 118/59; PULSE 90; RESP 18
--- NOTE | 2018-10-18 22:50 | NUR ---
RECEIVED REPORT FROM MAYRA LINSALES TECHNICIAN HOME THEATER FOR CONTINUITY OF CARE .
--- NOTE | 2018-10-18 23:38 | NUR ---
gave report to Juliana in 2E for pt going to room 2244, report given around 2249, waiting for room to be clean up in [facility].
[2018-10-19 00:25] VITALS: BP 121/67; PULSE 89; RESP 19
--- NOTE | 2018-10-19 00:25 | NUR ---
PATIENT ARRIVED ON UNIT VIA WHEELCHAIR ACCOMPANIED BY TRANSPORT . PATIENT ALERT AND ORIENTED X4 , ERITREAN SPEAKING ONLY . ON O2 AT 5 LITERS /NC .V/S WITHIN NORMAL LIMITS .,DENIES ANY PAIN /DISCOMFORT AT THIS TIME . ORIENTED PATIENT TO THE ENVIRONMENT . CALL LIGHTS WITHIN REACH . BED IN LOW POSITION . INSTRUCTED PATIENT TO USE CALL LIGHTS FOR ASSISTANCE . PATIENT VERBALIZED UNDERSTANDING . WILL CONTINUE TO MONITOR .
[2018-10-19 02:00] VITALS: BP 123/73; PULSE 74; RESP 18
[2018-10-19] MEDS: ALBUTEROL/IPRATROPIUM (NEB) 3 ML AMP HHN SCH ×6 (02:25→20:12)
[2018-10-19] MEDS: ACETYLCYSTEINE 20% 4 ML VIAL NEB SCH ×4 (02:25→20:12)
[2018-10-19] MEDS: PANTOPRAZOLE (EC) 40 MG TAB PO SCH (06:08)
[2018-10-19] MEDS: METHYLPREDNISOLONE 40 MG INJ IV SCH ×3 (06:08→17:20)
[2018-10-19] MEDS: LEVOFLOXACIN 750 MG TABLET PO SCH (06:09)
[2018-10-19 08:14] VITALS: BP 121/74; PULSE 83; RESP 20
[2018-10-19] MEDS: FLUTICASONE/VILANTEROL 100-25 INH SCH (09:17)
[2018-10-19] MEDS: DOCUSATE SODIUM 100 MG CAP PO PRN ×2 (09:18→12:39)
[2018-10-19] MEDS: AMLODIPINE 5 MG TAB PO SCH (09:18)
[2018-10-19] MEDS: DICLOFENAC (EC) 25 MG TAB PO SCH ×2 (09:18→21:07)
[2018-10-19] MEDS: ENOXAPARIN 30 MG/0.3 ML SYG SC SCH (09:19)
--- NOTE | 2018-10-19 10:50 | NUR ---
Used translation line (korean) for leadership rounds. Pt. said she is feeling better and we are taking good care of her. Only complaints are a dry nose and (wants saline flushes) and no bm (received dulcolax 1 tab before but wants two. I notified her nurse, Natividad who said she was aware and had spoke to the pt. about taking care of it already.
--- NOTE | 2018-10-19 12:25 | PN ---
Date/Time of Note Date/Time of Note DATE: 10/19/18 TIME: 12:23 Assessment/Plan VTE Prophylaxis Risk score (from Ns)>0 risk: 7 SCD applied (from Ns): Yes Pharmacological prophylaxis: LMWH Lines/Catheters IV Catheter Type (from Nrs): Saline Lock Urinary Cath still in place: No Assessment/Plan Assessment/Plan 1. Community acquired pneumonia, improving, on levaquin 2. Asthma, probably COPD, on neb, levaquin, mucomyst, solumedrol 3. HTN, controlled with norvasc 4. DVT prophylaxis: lovenox Result Diagram: 10/18/1861710/18/1818 Subjective 24 Hr Interval Summary Free Text/Dictation still cough with shortness of breath with minimal exertion Exam/Review of Systems Vital Signs Vitals Vital Signs Date Temp Pulse Resp B/P (MAP) Pulse Ox O2 O2 Flow FiO2 Time Delivery Rate 10/19/18 90 20 93 Nasal 5.0 08:24 Cannula 10/19/18 98.3 121/74 08:14 (90) 10/17/18 40 05:26 Intake and Output 10/18/18 10/18/18 10/19/18 1515:00 23:00 07:00 IntakeIntake Total 900 ml 200 ml BalanceBalance 900 ml 200 ml Exam Constitutional: alert, oriented, well developed Psych: no complaints, nl mood/affect Head: normocephalic, atraumatic Eyes: nl conjunctiva, EOMI, nl lids, PERRL ENMT: nl external ears & nose, nl lips & teeth, nl nasal mucosa & septum Neck: supple, non-tender Respiratory: crackles/rales, wheezing Cardiovascular: regular rate and rhythm, nl pulses; No bruits, No diastolic murmur, No edema, No gallop, No irregular rhythm, No jugular venous distention (JVD), No murmurs/extra sounds, No rub, No systolic murmur, No S3, No S4, No other Gastrointestinal: soft, nl liver, spleen, non-tender Musculoskeletal: nl extremities to inspection Extremities: normal pulses; No calf tenderness, No cyanosis, No clubbing, No edema, No pitting pedal edema, No palpable cord, No tenderness, No other Neurological: PROJECT MANAGER/TEAM COACH II-XII intact, nl mental status, nl speech, nl strength Medications Medications Current Medications IV Flush (NS 3 ml) 3 ml PER PROTOCOL IV ; Start 10/15/18 at 00:30 Ondansetron HCl (Zofran Inj) 4 mg Q6H PRN IV NAUSEA AND/OR VOMITING; Start 10/15/18 at 00:30 Acetaminophen (Tylenol Tab) 650 mg Q6H PRN PO PAIN LEVEL 1-3 OR FEVER; Start 10/15/18 at 00:30 Bisacodyl (Dulcolax) 5 mg DAILY PRN PO CONSTIPATION Last administered on 10/18/18at 12:05; Admin Dose 5 MG; Start 10/15/18 at 00:30 Albuterol/ Ipratropium (Duoneb) 3 ml Q4H RESP THERAPY PRN HHN WHEEZING; Start 10/15/18 at 01:00 Albuterol/ Ipratropium (Duoneb) 3 ml Q4H RESP THERAPY HHN Last administered on 10/19/18at 08:24; Admin Dose 3 ML; Start 10/15/18 at 01:00 Amlodipine Besylate (Norvasc) 5 mg DAILY PO Last administered on 10/19/18 09:18; Admin Dose 5 MG; Start 10/15/18 at 09:00 Diclofenac Sodium (Voltaren) 50 mg BID PO Last administered on 10/19/18 09:18; Admin Dose 50 MG; Start 10/15/18 at 09:00 Fluticasone/ Vilanterol (Breo Ellipta 100-25 Mcg Inh) 1 inh DAILY INH Last administered on 10/19/18 09:17; Admin Dose 1 INH; Start 10/15/18 at 09:00 Enoxaparin Sodium (Lovenox) 30 mg DAILY SC Last administered on 10/19/18 09:19; Admin Dose 30 MG; Start 10/15/18 at 14:00 Pantoprazole (Protonix Tab) 40 mg DAILY@06 PO Last administered on 10/19/18 06:08; Admin Dose 40 MG; Start 10/16/18 at 06:00 Levofloxacin (Levaquin) 750 mg DAILY@06 PO Last administered on 10/19/18 06:09; Admin Dose 750 MG; Start 10/17/18 at 06:00 Acetylcysteine (Mucomyst) 2 ml Q6H RESP THERAPY NEB Last administered on 1/18/19at 08:24; Admin Dose 2 ML; Start 10/17/18 at 20:00 Methylprednisolone Sodium Succinate (Solu-Medrol) 20 mg Q6 IV Last administered on 10/19/18at 06:08; Admin Dose 20 MG; Start 10/18/18 at 18:00 Docusate Sodium (Colace) 200 mg Q12H PRN PO CONSTIPATION; Start 10/19/18 at 12:30 Sodium Chloride (Deep Sea) 1 spray PRN PRN NASAL NASAL CONGESTION; Start 10/19/18 at 11:30 TONYA MENDEZ MD Oct 19, 2018 12:25
[2018-10-19] MEDS: SALINE 0.65% 45 ML NAS SPRAY NASAL PRN ×2 (12:39→17:21)
[2018-10-19 14:56] VITALS: BP 100/50; PULSE 89; RESP 20
--- NOTE | 2018-10-19 18:20 | NUR ---
No acute changes during shift. Pt safe and free from injury. at bedside through shift. Pt is A&Ox4 and able to make needs known. Pt denies any pain or discomfort, denies any nausea. No signs of discomfort or distress. No SOB. Pt is currently laying in bed comfortably. Bed alarm on, call light within reach. Will continue to monitor.
[2018-10-19 20:24] VITALS: BP 107/53; PULSE 91; RESP 16
[2018-10-19] MEDS: BISACODYL (EC) 5 MG TAB PO PRN (21:11)
[2018-10-20] MEDS: METHYLPREDNISOLONE 40 MG INJ IV SCH ×4 (00:11→20:50)
[2018-10-20] MEDS: ACETYLCYSTEINE 20% 4 ML VIAL NEB SCH ×4 (00:51→19:55)
[2018-10-20] MEDS: ALBUTEROL/IPRATROPIUM (NEB) 3 ML AMP HHN SCH ×6 (00:51→19:55)
[2018-10-20 02:13] VITALS: BP 121/56; PULSE 86; RESP 18
[2018-10-20] MEDS: LEVOFLOXACIN 750 MG TABLET PO SCH (06:00)
[2018-10-20] MEDS: PANTOPRAZOLE (EC) 40 MG TAB PO SCH (06:00)
[2018-10-20 07:30] VITALS: BP 125/57; PULSE 79; RESP 22
[2018-10-20] MEDS: FLUTICASONE/VILANTEROL 100-25 INH SCH (08:44)
[2018-10-20] MEDS: AMLODIPINE 5 MG TAB PO SCH (08:44)
[2018-10-20] MEDS: ENOXAPARIN 30 MG/0.3 ML SYG SC SCH (08:44)
[2018-10-20] MEDS: DICLOFENAC (EC) 25 MG TAB PO SCH ×2 (08:44→20:50)
[2018-10-20] MEDS: SALINE 0.65% 45 ML NAS SPRAY NASAL PRN (10:21)
[2018-10-20 14:35] VITALS: BP 108/55; PULSE 80; RESP 18
[2018-10-20] MEDS ORDERED: AZITHROMYCIN 250 MG TAB PO ONE (16:00)
[2018-10-20] MEDS ORDERED: BISACODYL (EC) 5 MG TAB PO PRN (16:00)
--- NOTE | 2018-10-20 16:12 | PN ---
Date/Time of Note Date/Time of Note DATE: 10/20/18 TIME: 16:11 Assessment/Plan VTE Prophylaxis Risk score (from Ns)>0 risk: 5 SCD applied (from Ns): Yes SCD contraindicated: low risk/ambulating Pharmacological prophylaxis: heparin Lines/Catheters IV [facility] Saline Lock Urinary Cath still in place: No Assessment/Plan Problems: (1) Community acquired pneumonia Status: Acute Comment: Continue with antibiotic therapy and breathing treatments. We can at this time start tapering dose on the steroids and come in with a more typical asthma COPD medication regimen Qualifiers: Laterality: right Lung location: middle lobe of lung Qualified Codes: J18.1 - Lobar pneumonia, unspecified organism (2) Asthma, moderate persistent Status: Chronic Comment: Improving nicely Qualifiers: Asthma complication type: with acute exacerbation Qualified Codes: J45.41 - Moderate persistent asthma with (acute) exacerbation (3) Essential hypertension Status: Chronic Comment: Adequate control Result Diagram: 10/18/1861710/18/18617 Subjective 24 Hr Interval Summary Free Text/Dictation Charming Faroese-speaking young lady. She reports she is still having some breathing issues but is feeling better Constitutional: no complaints Respiratory: cough, wheezing Cardiovascular: no complaints Gastrointestinal: no complaints, constipation Genitourinary: no complaints Exam/Review of Systems Vital Signs Vitals Vital Signs Date Temp Pulse Resp B/P (MAP) Pulse Ox O2 O2 Flow FiO2 Time Delivery Rate 10/20/18 98.2 80 18 108/55 95 Nasal 14:35 (72) Cannula 10/20/18 5.0 14:04 10/17/18 40 05:26 Intake and Output 10/19/18 10/19/18 10/20/18 1515:00 23:00 07:00 IntakeIntake Total 560 ml 150 ml 680 ml OutputOutput Total 800 ml BalanceBalance -240 ml 150 ml 680 ml Exam Constitutional: alert, oriented Respiratory: normal air movement, wheezing Cardiovascular: regular rate and rhythm, nl pulses Medications Medications Current Medications IV Flush (NS 3 ml) 3 ml PER PROTOCOL IV ; Start 10/15/18 at 00:30 Ondansetron HCl (Zofran Inj) 4 mg Q6H PRN IV NAUSEA AND/OR VOMITING; Start 10/15/18 at 00:30 Acetaminophen (Tylenol Tab) 650 mg Q6H PRN PO PAIN LEVEL 1-3 OR FEVER; Start 10/15/18 at 00:30 Bisacodyl (Dulcolax) 5 mg DAILY PRN PO CONSTIPATION Last administered on 10/02 21:11; Admin Dose 5 MG; Start 10/15/18 at 00:30 Albuterol/ Ipratropium (Duoneb) 3 ml Q4H RESP THERAPY PRN HHN WHEEZING; Start 10/15/18 at 01:00 Albuterol/ Ipratropium (Duoneb) 3 ml Q4H RESP THERAPY HHN Last administered on 10/20/18 14:04; Admin Dose 3 ML; Start 10/15/18 at 01:00 Amlodipine Besylate (Norvasc) 5 mg DAILY PO Last administered on 10/20/18 08:44; Admin Dose 5 MG; Start 10/15/18 at 09:00 Diclofenac Sodium (Voltaren) 50 mg BID PO Last administered on 10/20/18 08:44; Admin Dose 50 MG; Start 10/15/18 at 09:00 Fluticasone/ Vilanterol (Breo Ellipta 100-25 Mcg Inh) 1 inh DAILY INH Last administered on 10/20/18 08:44; Admin Dose 1 INH; Start 10/15/18 at 09:00 Enoxaparin Sodium (Lovenox) 30 mg DAILY SC Last administered on 10/20/18 08:44; Admin Dose 30 MG; Start 10/15/18 at 14:00 Pantoprazole (Protonix Tab) 40 mg DAILY@06 PO Last administered on 10/20/18 06:00; Admin Dose 40 MG; Start 10/16/18 at 06:00 Levofloxacin (Levaquin) 750 mg DAILY@06 PO Last administered on 10/20/18 06:00; Admin Dose 750 MG; Start 10/17/18 at 06:00 Acetylcysteine (Mucomyst) 2 ml Q6H RESP THERAPY NEB Last administered on 10/20/18 14:04; Admin Dose 2 ML; Start 10/17/18 at 20:00 Docusate Sodium (Colace) 200 mg Q12H PRN PO CONSTIPATION Last administered on 10/19/18 12:39; Admin Dose 200 MG; Start 10/19/18 at 12:30 Sodium Chloride (Deep Sea) 1 spray PRN PRN NASAL NASAL CONGESTION Last administered on 10/20/18at 10:21; Admin Dose 1 SPRAY; Start 10/19/18 at 11:30 Methylprednisolone Sodium Succinate (Solu-Medrol) 20 mg Q12 IV ; Start 10/20/18 at 21:00; Status UNV Montelukast Sodium (Singulair) 10 mg HS PO ; Start 10/20/18 at 21:00; Status UNV Tiotropium [place] (Spiriva) 1 inh DAILY INH ; Start 10/20/18 at 16:00; Status UNV Azithromycin (Zithromax) 2,000 mg ONCE ONCE PO ; Start 10/20/18 at 16:00; Stop 10/20/18 at 16:01; Status UNV Bisacodyl (Dulcolax) 10 mg DAILY PRN PO CONSTIPATION; Start 10/20/18 at 16:00; Status UNV Magnesium Citrate (Citroma) 300 ml ONCE ONCE PO ; Start 10/20/18 at 16:00; Stop 10/20/18 at 16:01; Status UNV JULIET MOLINA MD Oct 20, 2018 16:12
[2018-10-20] MEDS ORDERED: MAGNESIUM CITRATE 300 ML BTL PO ONE (17:00)
[2018-10-20] MEDS: TIOTROPIUM 18 MCG CAPSULE INHA DEV INH SCH (17:41)
--- NOTE | 2018-10-20 17:48 | NUR ---
RN Notes: Patient remains alert and oriented, afebrile, noted with period of sob upon exertion, On O2 at 5L nasal cannula, SPO2 93%, breathing even and unlabored. Dr. Gloria aware regarding pt has no BM for more than 3 days MD gave an order, adm Magnesium Citrate as ordered. Hourly rounding done, call light within reach, bed alarm on. Will continue to monitor and will endorse for continuity of care.
[2018-10-20 20:00] VITALS: BP 106/56; PULSE 95; RESP 17
[2018-10-20] MEDS: MONTELUKAST 10 MG TAB PO SCH (20:50)
[2018-10-21] MEDS: ACETYLCYSTEINE 20% 4 ML VIAL NEB SCH ×4 (01:39→20:02)
[2018-10-21] MEDS: ALBUTEROL/IPRATROPIUM (NEB) 3 ML AMP HHN SCH ×6 (01:39→20:02)
[2018-10-21 02:00] VITALS: BP 118/52; RESP 17
[2018-10-21] MEDS: SALINE 0.65% 45 ML NAS SPRAY NASAL PRN ×2 (02:12→15:02)
[2018-10-21] MEDS: LEVOFLOXACIN 750 MG TABLET PO SCH (06:24)
[2018-10-21] MEDS: PANTOPRAZOLE (EC) 40 MG TAB PO SCH (06:24)
[2018-10-21 08:08] VITALS: BP 115/64; PULSE 88; RESP 16
[2018-10-21] MEDS: TIOTROPIUM 18 MCG CAPSULE INHA DEV INH SCH (10:03)
[2018-10-21] MEDS: FLUTICASONE/VILANTEROL 100-25 INH SCH (10:03)
[2018-10-21] MEDS: METHYLPREDNISOLONE 40 MG INJ IV SCH ×2 (10:03→21:12)
[2018-10-21] MEDS: AMLODIPINE 5 MG TAB PO SCH (10:04)
[2018-10-21] MEDS: ENOXAPARIN 30 MG/0.3 ML SYG SC SCH (10:04)
[2018-10-21] MEDS: DICLOFENAC (EC) 25 MG TAB PO SCH ×2 (10:07→21:13)
[2018-10-21] MEDS ORDERED: NA PHOSPHATE/BIPHOS 133 ML ENEMA PR ONE (12:00)
[2018-10-21] MEDS ORDERED: MAGNESIUM CITRATE 300 ML BTL PO ONE ×2 (12:00→13:30)
[2018-10-21] MEDS ORDERED: BISACODYL 10 MG SUPP PR ONE (12:00)
[2018-10-21] MEDS ORDERED: LACTULOSE 30ML CUP PO ONE (12:00)
--- NOTE | 2018-10-21 12:03 | PN ---
Date/Time of Note Date/Time of Note DATE: 10/21/18 TIME: 12:01 Assessment/Plan VTE Prophylaxis Risk score (from Ns)>0 risk: 8 SCD applied (from Ns): Yes Pharmacological prophylaxis: heparin Lines/Catheters IV [facility] Saline Lock Urinary Cath still in place: No Assessment/Plan Problems: (1) Asthma, moderate persistent Status: Chronic Comment: Modest improvement with the transition. She has received aggressive antibiotic therapy as well as steroids. We will add an theophylline to her regimen to help get her over the hump Qualifiers: Asthma complication type: with acute exacerbation Qualified Codes: J45.41 - Moderate persistent asthma with (acute) exacerbation (2) Community acquired pneumonia Status: Acute Comment: Rachell on antibiotic therapy Qualifiers: Laterality: right Lung location: middle lobe of lung Qualified Codes: J18.1 - Lobar pneumonia, unspecified organism (3) Essential hypertension Status: Chronic Comment: Adequate control (4) Obstipation Status: Acute Comment: Repeat treatment and a fleets enema Result Diagram: 10/18/1861710/18/1818 Subjective 24 Hr Interval Summary Free Text/Dictation Patient reports she had a minimal response to the treatment for constipation yesterday. She reports her breathing is still tight although not as tight as when she was admitted to the hospital Constitutional: no complaints (No fevers chills or sweats) Respiratory: cough, shortness of breath Cardiovascular: no complaints Gastrointestinal: constipation Genitourinary: no complaints Neurologic: no complaints Exam/Review of Systems Vital Signs Vitals Vital Signs Date Temp Pulse Resp B/P (MAP) Pulse Ox O2 O2 Flow FiO2 Time Delivery Rate 10/21/18 98.7 88 16 115/64 92 08:08 (81) 10/21/18 Nasal 5.0 08:06 Cannula Intake and Output 10/20/18 10/20/18 10/21/18 1515:00 23:00 07:00 IntakeIntake Total 350 ml 500 ml 200 ml BalanceBalance 350 ml 500 ml 200 ml Exam Constitutional: alert, oriented Neck: supple, non-tender Respiratory: clear to auscultation, normal air movement Cardiovascular: regular rate and rhythm, nl pulses Gastrointestinal: soft, nl liver, spleen, non-tender Medications Medications Current Medications IV Flush (NS 3 ml) 3 ml PER PROTOCOL IV ; Start 10/15/18 at 00:30 Ondansetron HCl (Zofran Inj) 4 mg Q6H PRN IV NAUSEA AND/OR VOMITING; Start 10/15/18 at 00:30 Acetaminophen (Tylenol Tab) 650 mg Q6H PRN PO PAIN LEVEL 1-3 OR FEVER; Start 10/15/18 at 00:30 Albuterol/ Ipratropium (Duoneb) 3 ml Q4H RESP THERAPY PRN HHN WHEEZING; Start 10/15/18 at 01:00 Albuterol/ Ipratropium (Duoneb) 3 ml Q4H RESP THERAPY HHN Last administered on 10/21/18 08:05; Admin Dose 3 ML; Start 10/15/18 at 01:00 Amlodipine Besylate (Norvasc) 5 mg DAILY PO Last administered on 10/21/18 10:04; Admin Dose 5 MG; Start 10/15/18 at 09:00 Diclofenac Sodium (Voltaren) 50 mg BID PO Last administered on 10/21/18 10:07; Admin Dose 50 MG; Start 10/15/18 at 09:00 Fluticasone/ Vilanterol (Breo Ellipta 100-25 Mcg Inh) 1 inh DAILY INH Last administered on 10/21/18 10:03; Admin Dose 1 INH; Start 10/15/18 at 09:00 Enoxaparin Sodium (Lovenox) 30 mg DAILY SC Last administered on 10/21/18 10:04; Admin Dose 30 MG; Start 10/15/18 at 14:00 Pantoprazole (Protonix Tab) 40 mg DAILY@06 PO Last administered on 10/21/18 06:24; Admin Dose 40 MG; Start 10/16/18 at 06:00 Levofloxacin (Levaquin) 750 mg DAILY@06 PO Last administered on 10/21/18 06:24; Admin Dose 750 MG; Start 10/17/18 at 06:00 Acetylcysteine (Mucomyst) 2 ml Q6H RESP THERAPY NEB Last administered on 10/21/18 08:05; Admin Dose 2 ML; Start 10/17/18 at 20:00 Docusate Sodium (Colace) 200 mg Q12H PRN PO CONSTIPATION Last administered on 10/19/18 12:39; Admin Dose 200 MG; Start 10/19/18 at 12:30 Sodium Chloride (Deep Sea) 1 spray PRN PRN NASAL NASAL CONGESTION Last administered on 10/21/18at 02:12; Admin Dose 1 SPRAY; Start 10/19/18 at 11:30 Methylprednisolone Sodium Succinate (Solu-Medrol) 20 mg Q12 IV Last administered on 10/21/18at 10:03; Admin Dose 20 MG; Start 10/20/18 at 21:00 Montelukast Sodium (Singulair) 10 mg HS PO Last administered on 10/20/18at 20:50; Admin Dose 10 MG; Start 10/20/18 at 21:00 Tiotropium [place] (Spiriva) 1 inh DAILY INH Last administered on 10/21/18at 10:03; Admin Dose 1 INH; Start 10/20/18 at 17:00 Bisacodyl (Dulcolax) 10 mg DAILY PRN PO CONSTIPATION Last administered on 10/20/18at 20:55; Admin Dose 10 MG; Start 10/20/18 at 16:00 Bisacodyl (Dulcolax Supp) 10 mg ONCE ONCE NH ; Start 10/21/18 at 12:00; Stop 10/21/18 at 12:01 JULIET MOLINA MD Oct 21, 2018 12:03
[2018-10-21] MEDS ORDERED: THEOPHYLLINE (SR) 300 MG CAP PO SCH (13:30)
[2018-10-21 14:32] VITALS: BP 104/52; PULSE 85; RESP 16
[2018-10-21] MEDS: THEOPHYLLINE (SR) 300 MG TAB PO SCH (15:01)
--- NOTE | 2018-10-21 19:00 | NUR ---
Patient sitting on the edge of the bed, alert and oriented X 4, georgian speaking. Vital signs stable. Denies pain. Patient continue with O2 at 5 L/min via NC. Patient had a big bowel movement today after dulcolax suppository. Continue with Breathing treatments and solumedrol IV.
[2018-10-21 20:00] VITALS: BP 107/59; PULSE 103; RESP 18
[2018-10-21] MEDS: MONTELUKAST 10 MG TAB PO SCH (21:12)
[2018-10-22] MEDS: ACETYLCYSTEINE 20% 4 ML VIAL NEB SCH ×4 (00:34→21:33)
[2018-10-22] MEDS: ALBUTEROL/IPRATROPIUM (NEB) 3 ML AMP HHN SCH ×6 (00:34→21:33)
[2018-10-22 02:00] VITALS: BP 97/52; PULSE 93; RESP 18
[2018-10-22] MEDS: LEVOFLOXACIN 750 MG TABLET PO SCH (06:03)
[2018-10-22] MEDS: PANTOPRAZOLE (EC) 40 MG TAB PO SCH (06:03)
--- NOTE | 2018-10-22 06:57 | NUR ---
no acute changes. pt remained afebrile with the rest of the vitals stable. on o2 via NC to keep o2 stable. denies pain when asked. needs attended to and anticipated. hourly rounding done. will endorse to next shift.
[2018-10-22] MEDS: THEOPHYLLINE (SR) 300 MG TAB PO SCH (08:31)
[2018-10-22] MEDS: METHYLPREDNISOLONE 40 MG INJ IV SCH (08:32)
[2018-10-22] MEDS: DICLOFENAC (EC) 25 MG TAB PO SCH ×2 (08:32→21:49)
[2018-10-22] MEDS: TIOTROPIUM 18 MCG CAPSULE INHA DEV INH SCH (08:33)
[2018-10-22] MEDS: ENOXAPARIN 30 MG/0.3 ML SYG SC SCH (08:34)
[2018-10-22 08:39] VITALS: BP 108/54; PULSE 80; RESP 17
[2018-10-22] MEDS: SALINE 0.65% 45 ML NAS SPRAY NASAL PRN (08:44)
[2018-10-22 08:45] VITALS: BP 126/67
[2018-10-22] MEDS: AMLODIPINE 5 MG TAB PO SCH (08:45)
[2018-10-22] MEDS: FLUTICASONE/VILANTEROL 200-25 INH DEVICE INH SCH (10:12)
[2018-10-22 15:04] VITALS: BP 104/50; PULSE 97; RESP 17
--- NOTE | 2018-10-22 17:40 | NUR ---
NURSE NOTES: patient alert and oriented x 4, able to make needs known. No SOB or distress. on oxygen via nasal cannula. Breathing treatments were given by RT as ordered.All due medications were given tolerated well. safety precautions observed at all times. Bed alarm and bed brakes on for safety. Encouraged to use call light and telephone whenever assistance is needed. patient refused bed alarm. Explained to pt the importance of the bed alarm but still patient refused. Will continue to monitor. Will endorse accordingly to next shift for continuity of care.
--- NOTE | 2018-10-22 18:10 | PN ---
Date/Time of Note Date/Time of Note DATE: 10/22/18 TIME: 18:08 Assessment/Plan VTE Prophylaxis Risk score (from Ns)>0 risk: 5 SCD applied (from Ns): Yes Pharmacological prophylaxis: LMWH Lines/Catheters IV Catheter Type (from [facility] Saline Lock Urinary Cath still in place: No Assessment/Plan Hospital Course SUBJECTIVE: Continues to remain on supplemental oxygen. OBJECTIVE: Physical Exam General: Adequately build 77 year-old female lying in bed in no apparent distress. HEENT: Normocephalic, atraumatic. Eyes: Anicteric sclerae, conjunctivae clear. ENT: Nasal septum midline, oral mucosa moist. Neck supple, no JVD noticed. Respiratory: Bilaterally diminished breath sounds. No use of accessory muscles of respiration. Bilateral expiratory wheezing. Cardiovascular: S1, S2 heard. Regular rate and rhythm. Abdomen: Soft, nontender, and nondistended. Bowel sounds positive in all 4 quadrants. Genitourinary: Deferred. Extremities: No cyanosis, no clubbing. Trace bilateral lower extremity edema. Peripheral pulses palpable. Neurologic: Cranial nerves II through XII grossly intact. The patient is awake, alert, and oriented. Skin: Normal skin turgor. No skin rashes. Labs & Vitals per chart ASSESSMENT & PLAN 71-year-old female with comorbidities including hypertension, obesity, and asthma, who went to an outside facility emergency room because of dyspnea and cough. The patient was transferred to [facility] further evaluation because of insurance reasons. 1. Asthma exacerbation. -Continue inhaled bronchodilators ALEJANDRO & LABA. -Continue leukotriene inhibitors. -Continue theophylline. Check a.m. theophylline levels. -Continue tapering dose of steroids. 2. Right lower lobe infiltrate. -Being treated for community-acquired pneumonia. -Repeat chest imaging. 3. Essential hypertension. -Continue antihypertensives 4. Fluids, electrolytes, and nutrition. -Low-cholesterol diet. 5. DVT prophylaxis. -Subcutaneous Lovenox. 6. Plan. -Continue inhaled bronchodilators -Continue antibiotics. -Await clinical improvement. The patient was seen in collaboration with Dr. Bucio. Result Diagram: 10/18/1861710/18/18617 Exam/Review of Systems Vital Signs Vitals Vital Signs Date Temp Pulse Resp B/P (MAP) Pulse Ox O2 O2 Flow FiO2 Time Delivery Rate 10/22/18 80 20 94 Nasal 5.0 17:00 Cannula 10/22/18 98.3 104/50 15:04 (68) Intake and Output 10/21/18 10/21/18 10/22/18 1515:00 23:00 07:00 IntakeIntake Total 1000 ml BalanceBalance 1000 ml Medications Medications Current Medications IV Flush (NS 3 ml) 3 ml PER PROTOCOL IV ; Start 10/15/18 at 00:30 Ondansetron HCl (Zofran Inj) 4 mg Q6H PRN IV NAUSEA AND/OR VOMITING; Start 10/15/18 at 00:30 Acetaminophen (Tylenol Tab) 650 mg Q6H PRN PO PAIN LEVEL 1-3 OR FEVER; Start 10/15/18 at 00:30 Albuterol/ Ipratropium (Duoneb) 3 ml Q4H RESP THERAPY PRN HHN WHEEZING; Start 10/15/18 at 01:00 Albuterol/ Ipratropium (Duoneb) 3 ml Q4H RESP THERAPY HHN Last administered on 10/22/18at 16:58; Admin Dose 3 ML; Start 10/15/18 at 01:00 Amlodipine Besylate (Norvasc) 5 mg DAILY PO Last administered on 10/22/18at 08:45; Admin Dose 5 MG; Start 10/15/18 at 09:00 Diclofenac Sodium (Voltaren) 50 mg BID PO Last administered on 10/22/18at 08:32; Admin Dose 50 MG; Start 10/15/18 at 09:00 Enoxaparin Sodium (Lovenox) 30 mg DAILY SC Last administered on 10/22/18at 08:34; Admin Dose 30 MG; Start 10/15/18 at 14:00 Pantoprazole (Protonix Tab) 40 mg DAILY@06 PO Last administered on 10/22/18at 06:03; Admin Dose 40 MG; Start 10/16/18 at 06:00 Levofloxacin (Levaquin) 750 mg DAILY@06 PO Last administered on 10/22/18at 06:03; Admin Dose 750 MG; Start 10/17/18 at 06:00; Stop 10/27/18 at 05:59 Acetylcysteine (Mucomyst) 2 ml Q6H RESP THERAPY NEB Last administered on 10/22/18at 13:54; Admin Dose 2 ML; Start 10/17/18 at 20:00 Docusate Sodium (Colace) 200 mg Q12H PRN PO CONSTIPATION Last administered on 10/19/18 12:39; Admin Dose 200 MG; Start 10/19/18 at 12:30 Sodium Chloride (Deep Sea) 1 spray PRN PRN NASAL NASAL CONGESTION Last administered on 10/22/18 08:44; Admin Dose 1 SPRAY; Start 10/19/18 at 11:30 Montelukast Sodium (Singulair) 10 mg HS PO Last administered on 10/21/18 21:12; Admin Dose 10 MG; Start 10/20/18 at 21:00 Tiotropium [place] (Spiriva) 1 inh DAILY INH Last administered on 10/22/18 08:33; Admin Dose 1 INH; Start 10/20/18 at 17:00 Bisacodyl (Dulcolax) 10 mg DAILY PRN PO CONSTIPATION Last administered on 10/20/18 20:55; Admin Dose 10 MG; Start 10/20/18 at 16:00 Fluticasone/ Vilanterol (Breo Ellipta 200-25 Mcg Inh) 1 inh DAILY INH Last administered on 10/22/18at 10:12; Admin Dose 1 INH; Start 10/22/18 at 09:00 Theophylline (Sp-Dur) 300 mg DAILY PO Last administered on 10/22/18 08:31; Admin Dose 300 MG; Start 10/21/18 at 14:00 Methylprednisolone Sodium Succinate (Solu-Medrol) 60 mg Q8 IV ; Start 10/22/18 at 22:00 CARLOS GREEN NP Oct 22, 2018 18:10
[2018-10-22 20:00] VITALS: BP 105/56; PULSE 87; RESP 18
[2018-10-22] MEDS ORDERED: SOD CHLORIDE 0.9% 100 ML ONE (20:25)
[2018-10-22] MEDS ORDERED: IOHEXOL 100 ML ONE (20:25)
--- NOTE | 2018-10-22 21:11 | NUR ---
Procedure Ordered:CHEST ANGIO Reason for Exam Today:HYPOXIA Previous Exams: Allergies:NKA Current Medications Taken: Glucophage ( ) Metformin ( ) Previous reaction to contrast media: Yes ( ) No ( ) : Yes ( ) No (X ) Asthma: Yes ( ) No (X ) Diabetes: Yes ( ) No (X ) Myeloma: Yes ( ) No (X ) Heart Disease: Yes (X ) No ( ) Cardiac Disease: Yes (X ) No ( ) Kidney Disease: Yes ( ) No (X ) Vascular Disease: Yes ( ) No (X ) Patient Teaching done: Yes (X ) No ( ) University Administrator Used: Yes ( ) No ( ) Name of University Administrator: Language Used: As part of the test requested by your doctor, contrast media may be injected into your vein while the x-rays are being taken. Occasionally, reactions from IV contrast may occur. The physician and staff of this hospital are trained to treat these reactions. Select the type of Contrast that will be given to patient: Isovue 300 ( ) Isovue 370 ( ) Visipaque ( ) Cystografin ( ) Gastrographin ( ) Redi-cat ( ) Volumen ( ) OMNIPAQUE 350 (X) Amount of contrast to be given: 90ML IV (X ) PO ( ) Date given: 10/22/18 Lab Values: BUN: 15 Creatinine: 0.44 Reason why contrast cannot be given: Location of patient pre-procedure: 4238U Location of patient post procedure: 0806D
[2018-10-22] MEDS: MONTELUKAST 10 MG TAB PO SCH (21:49)
[2018-10-22] MEDS: METHYLPREDNISOLONE 125 MG INJ IV SCH (21:49)
--- NOTE | 2018-10-22 22:30 | NUR ---
called dr soler requested if he can manage patient's transfer orders tonight. Per Dr Soler he will try to do it when he has the chance otherwise it can be requested tomorrow to dayshift hospitalist.
[2018-10-23] MEDS: ALBUTEROL/IPRATROPIUM (NEB) 3 ML AMP HHN SCH ×6 (00:34→20:09)
[2018-10-23] MEDS: ACETYLCYSTEINE 20% 4 ML VIAL NEB SCH ×4 (00:52→20:09)
[2018-10-23 02:00] VITALS: BP 105/53; PULSE 89; RESP 18
[2018-10-23] MEDS: LEVOFLOXACIN 750 MG TABLET PO SCH (05:31)
[2018-10-23] MEDS: METHYLPREDNISOLONE 125 MG INJ IV SCH ×3 (05:31→21:21)
[2018-10-23] MEDS: PANTOPRAZOLE (EC) 40 MG TAB PO SCH (05:31)
--- NOTE | 2018-10-23 05:41 | PN ---
Date/Time of Note Date/Time of Note DATE: 10/23/18 TIME: 05:39 Assessment/Plan VTE Prophylaxis Risk score (from Ns)>0 risk: 4 SCD applied (from Ns): Yes Pharmacological prophylaxis: LMWH Lines/Catheters IV Catheter Type (from [facility]): Saline Lock Urinary Cath still in place: No Assessment/Plan Hospital Course SUBJECTIVE: Continues to remain on supplemental oxygen. Was complaining of left chest wall pain. OBJECTIVE: Physical Exam General: Adequately build 77 year-old female lying in bed in no apparent dist ress. HEENT: Normocephalic, atraumatic. Eyes: Anicteric sclerae, conjunctivae clear. ENT: Nasal septum midline, oral mucosa moist. Neck supple, no JVD noticed. Respiratory: Bilaterally diminished breath sounds. No use of accessory muscles of respiration. Bilateral expiratory wheezing. Cardiovascular: S1, S2 heard. Regular rate and rhythm. Abdomen: Soft, nontender, and nondistended. Bowel sounds positive in all 4 quadrants. Genitourinary: Deferred. Extremities: No cyanosis, no clubbing. Trace bilateral lower extremity edema. Peripheral pulses palpable. Neurologic: Cranial nerves II through XII grossly intact. The patient is awake, alert, and oriented. Skin: Normal skin turgor. No skin rashes. Labs & Vitals per chart ASSESSMENT & PLAN 71-year-old female with comorbidities including hypertension, obesity, and asthma, who went to an outside facility emergency room because of dyspnea and cough. The patient was transferred to [facility] further evaluation because of insurance reasons. 1. Asthma exacerbation. -Continue inhaled bronchodilators ALEJANDRO & LABA. -Continue leukotriene inhibitors. -Continue theophylline. Check a.m. theophylline levels. -Continue tapering dose of steroids. 2. Significant volume loss of the right middle and lower lobe with subsegmental atelectasis. -Pulmonary evaluation. 3. Suspect community-acquired pneumonia. -Continue antimicrobials. 4. Essential hypertension. -Continue antihypertensives 5. Fluids, electrolytes, and nutrition. -Low-cholesterol diet. 6. DVT prophylaxis. -Subcutaneous Lovenox. 7. Plan. -Continue inhaled bronchodilators -Continue antibiotics. -Await clinical improvement. -Obtain pulmonary consult. The patient was seen in collaboration with Dr. Bucio. Exam/Review of Systems Vital Signs Vitals Vital Signs Date Temp Pulse Resp B/P (MAP) Pulse Ox O2 O2 Flow FiO2 Time Delivery Rate 1/22/19 82 20 93 Nasal 5.0 04:32 Cannula 10/23/18 98.4 105/53 02:00 (70) Intake and Output 10/22/18 10/22/18 10/23/18 1515:00 23:00 07:00 IntakeIntake Total 320 ml BalanceBalance 320 ml Medications Medications Current Medications IV Flush (NS 3 ml) 3 ml PER PROTOCOL IV ; Start 10/15/18 at 00:30 Ondansetron HCl (Zofran Inj) 4 mg Q6H PRN IV NAUSEA AND/OR VOMITING; Start 10/15/18 at 00:30 Acetaminophen (Tylenol Tab) 650 mg Q6H PRN PO PAIN LEVEL 1-3 OR FEVER; Start 10/15/18 at 00:30 Albuterol/ Ipratropium (Duoneb) 3 ml Q4H RESP THERAPY PRN HHN WHEEZING; Start 10/15/18 at 01:00 Albuterol/ Ipratropium (Duoneb) 3 ml Q4H RESP THERAPY HHN Last administered on 10/23/18at 04:32; Admin Dose 3 ML; Start 10/15/18 at 01:00 Amlodipine Besylate (Norvasc) 5 mg DAILY PO Last administered on 10/22/18at 08:45; Admin Dose 5 MG; Start 10/15/18 at 09:00 Diclofenac Sodium (Voltaren) 50 mg BID PO Last administered on 10/22/18at 21:49; Admin Dose 50 MG; Start 10/15/18 at 09:00 Pantoprazole (Protonix Tab) 40 mg DAILY@06 PO Last administered on 10/23/18at 05:31; Admin Dose 40 MG; Start 10/16/18 at 06:00 Levofloxacin (Levaquin) 750 mg DAILY@06 PO Last administered on 10/23/18at 05:31; Admin Dose 750 MG; Start 10/17/18 at 06:00; Stop 10/27/18 at 05:59 Acetylcysteine (Mucomyst) 2 ml Q6H RESP THERAPY NEB Last administered on 10/23/18at 00:52; Admin Dose 2 ML; Start 10/17/18 at 20:00 Docusate Sodium (Colace) 200 mg Q12H PRN PO CONSTIPATION Last administered on 1/18/19at 12:39; Admin Dose 200 MG; Start 10/19/18 at 12:30 Sodium Chloride (Deep Sea) 1 spray PRN PRN NASAL NASAL CONGESTION Last administered on 10/22/18 08:44; Admin Dose 1 SPRAY; Start 10/19/18 at 11:30 Montelukast Sodium (Singulair) 10 mg HS PO Last administered on 10/22/18 21:49; Admin Dose 10 MG; Start 10/20/18 at 21:00 Tiotropium [place] (Spiriva) 1 inh DAILY INH Last administered on 10/22/18 08:33; Admin Dose 1 INH; Start 10/20/18 at 17:00 Bisacodyl (Dulcolax) 10 mg DAILY PRN PO CONSTIPATION Last administered on 10/20/18 20:55; Admin Dose 10 MG; Start 10/20/18 at 16:00 Fluticasone/ Vilanterol (Breo Ellipta 200-25 Mcg Inh) 1 inh DAILY INH Last administered on 10/22/18 10:12; Admin Dose 1 INH; Start 10/22/18 at 09:00 Theophylline (Sp-Dur) 300 mg DAILY PO Last administered on 10/22/18 08:31; Admin Dose 300 MG; Start 10/21/18 at 14:00 Methylprednisolone Sodium Succinate (Solu-Medrol) 60 mg Q8 IV Last administered on 10/23/18 05:31; Admin Dose 60 MG; Start 10/22/18 at 22:00 Enoxaparin Sodium (Lovenox) 40 mg DAILY SC ; Start 10/23/18 at 09:00 CARLOS GREEN NP Oct 23, 2018 05:41
--- NOTE | 2018-10-23 06:47 | NUR ---
no acute changes overnight patient remained afebrile with vss. remained on o2 at 5lmp with humidifier. CT angio done last night as ordered. needs attended to, with hourly rounding done. call light within reach bed alarms on. will cont to monitor and will endorse accordingly.
[2018-10-23 07:59] VITALS: BP 124/56; PULSE 76; RESP 16
[2018-10-23] MEDS: DICLOFENAC (EC) 25 MG TAB PO SCH ×2 (08:34→20:22)
[2018-10-23] MEDS: THEOPHYLLINE (SR) 300 MG TAB PO SCH (08:34)
[2018-10-23] MEDS: TIOTROPIUM 18 MCG CAPSULE INHA DEV INH SCH (08:35)
[2018-10-23] MEDS: AMLODIPINE 5 MG TAB PO SCH (08:35)
[2018-10-23] MEDS: FLUTICASONE/VILANTEROL 200-25 INH DEVICE INH SCH (08:37)
[2018-10-23] MEDS: ENOXAPARIN 40 MG/0.4 ML SYG SC SCH (08:39)
[2018-10-23] MEDS: SALINE 0.65% 45 ML NAS SPRAY NASAL PRN (09:50)
--- NOTE | 2018-10-23 10:01 | CONS ---
Date/Time of Note Date/Time of Note DATE: 10/23/18 TIME: 09:57 Assessment/Plan Assessment/Plan Assessment/Plan CT chest was reviewed from yesterday which is essentially unremarkable. There is minimal left lower lobe subsegmental atelectasis. Chest x-ray was reviewed from admission which was showing right lower lobe at electasis. Assessment recommendations; 1. Patient admitted for asthma exacerbation with acute bronchitis with interval improvement. However patient has now required increased Solu-Medrol dosing af ter initial tapering because of recurrent wheezing. 2. History of hypertension. Continue current supportive care. Steroid taper in 24 hours. Result Diagram: 10/23/18 0606 10/23/18 0606 Results 24hrs Laboratory Tests Test 10/23/18 06:06 White Blood Count 7.8 # Red Blood Count 3.73 L Hemoglobin 11.6 L Hematocrit 35.0 L Mean Corpuscular Volume 93.8 Mean Corpuscular Hemoglobin 31.1 Mean Corpuscular Hemoglobin Concent 33.1 Red Cell Distribution Width 12.9 Platelet Count 359 Mean Platelet Volume 8.9 Immature Granulocytes % 4.700 H Neutrophils % 83.4 H Lymphocytes % 8.6 L Monocytes % 3.2 Eosinophils % 0.0 Basophils % 0.1 Nucleated Red Blood Cells % 0.0 Immature Granulocytes # 0.370 H Neutrophils # 6.5 Lymphocytes # 0.7 L Monocytes # 0.3 Eosinophils # 0.0 Basophils # 0.0 Nucleated Red Blood Cells # 0.0 Sodium Level 134 L Potassium Level 4.4 Chloride Level 97 Carbon Dioxide Level 29 Anion Gap 8 Blood Urea Nitrogen 16 Creatinine 0.52 Est Glomerular Filtrat Rate mL/min Glucose Level 144 Calcium Level 8.5 Phosphorus Level 4.1 Magnesium Level 2.3 Consultation Date/Type/Reason Admit Date/Time Oct 14, 2018 at 22:32 Date of Consultation: Oct 23, 2018 Type of Consult Pulmonary Patient is a pleasant 77-year-old lady who came into the hospital with a few days history of coughing, chest congestion and wheezing. Patient was diagnosed with asthma exacerbation and started on appropriate bronchodilator regimen with Levaquin. However after decreasing Solu-Medrol dosing patient developed worsening wheezing requiring increased supplemental dosing yesterday. Patient is feeling somewhat better but still complains of mild wheezing with scant cough without any sputum production.. Denies any fever, chills, body aches or myalgias. Past medical history; 1. History of hypertension. 2. Asthma. Medications; reviewed. Allergies; none. Social history; patient has been a lifelong non-smoker. Family history; noncontributory. Occupational history; patient has been a housewife. Review of systems; denies any headache, sinus symptoms. Any seizures. Any sore throat, dysphagia. Compressive very minimal cough and wheezing. Denies any sputum production, hemoptysis any fever or chills. Any chest pain. Denies any abdominal pain, nausea vomiting. Any body aches or myalgias. Any orthopnea. Any edema. Any GI or urinary symptoms. Any weight loss. Denies any chronic symptoms of asthma. General exam; elderly female, awake alert, currently no distress. Sitting in a chair by bedside. Past Medical History Medications Current Medications IV Flush (NS 3 ml) 3 ml PER PROTOCOL IV ; Start 10/15/18 at 00:30 Ondansetron HCl (Zofran Inj) 4 mg Q6H PRN IV NAUSEA AND/OR VOMITING; Start 10/15/18 at 00:30 Acetaminophen (Tylenol Tab) 650 mg Q6H PRN PO PAIN LEVEL 1-3 OR FEVER; Start 10/15/18 at 00:30 Albuterol/ Ipratropium (Duoneb) 3 ml Q4H RESP THERAPY PRN HHN WHEEZING; Start 10/15/18 at 01:00 Albuterol/ Ipratropium (Duoneb) 3 ml Q4H RESP THERAPY HHN Last administered on 10/23/18at 08:54; Admin Dose 3 ML; Start 10/15/18 at 01:00 Amlodipine Besylate (Norvasc) 5 mg DAILY PO Last administered on 10/23/18 08:35; Admin Dose 5 MG; Start 10/15/18 at 09:00 Diclofenac Sodium (Voltaren) 50 mg BID PO Last administered on 10/23/18 08:34; Admin Dose 50 MG; Start 10/15/18 at 09:00 Pantoprazole (Protonix Tab) 40 mg DAILY@06 PO Last administered on 10/23/18 05:31; Admin Dose 40 MG; Start 10/16/18 at 06:00 Levofloxacin (Levaquin) 750 mg DAILY@06 PO Last administered on 10/23/18 05:31; Admin Dose 750 MG; Start 10/17/18 at 06:00; Stop 10/27/18 at 05:59 Acetylcysteine (Mucomyst) 2 ml Q6H RESP THERAPY NEB Last administered on 10/23/18 08:54; Admin Dose 2 ML; Start 10/17/18 at 20:00 Docusate Sodium (Colace) 200 mg Q12H PRN PO CONSTIPATION Last administered on 10/19/18 12:39; Admin Dose 200 MG; Start 10/19/18 at 12:30 Sodium Chloride (Deep Sea) 1 spray PRN PRN NASAL NASAL CONGESTION Last administered on 10/23/18 09:50; Admin Dose 1 SPRAY; Start 10/19/18 at 11:30 Montelukast Sodium (Singulair) 10 mg HS PO Last administered on 10/22/18 21:49; Admin Dose 10 MG; Start 10/20/18 at 21:00 Tiotropium [place] (Spiriva) 1 inh DAILY INH Last administered on 10/23/18 08:35; Admin Dose 1 INH; Start 10/20/18 at 17:00 Bisacodyl (Dulcolax) 10 mg DAILY PRN PO CONSTIPATION Last administered on 10/20/18 20:55; Admin Dose 10 MG; Start 10/20/18 at 16:00 Fluticasone/ Vilanterol (Breo Ellipta 200-25 Mcg Inh) 1 inh DAILY INH Last administered on 10/23/18 08:37; Admin Dose 1 INH; Start 10/22/18 at 09:00 Theophylline (Sp-Dur) 300 mg DAILY PO Last administered on 10/23/18 08:34; Admin Dose 300 MG; Start 10/21/18 at 14:00 Methylprednisolone Sodium Succinate (Solu-Medrol) 60 mg Q8 IV Last administered on 10/23/18 05:31; Admin Dose 60 MG; Start 10/22/18 at 22:00 Enoxaparin Sodium (Lovenox) 40 mg DAILY SC Last administered on 10/23/18 08:39; Admin Dose 40 MG; Start 10/23/18 at 09:00 Allergies: Coded Allergies: No Known Allergy (Unverified , 10/15/18) Social History Alcohol Use: none Smoking Status: Never smoker Drug Use: none Exam/Review of Systems Vital Signs Vitals Vital Signs Date Temp Pulse Resp B/P (MAP) Pulse Ox O2 O2 Flow FiO2 Time Delivery Rate 10/23/18 93 20 93 Nasal 5.0 08:55 Cannula 10/23/18 97.7 124/56 07:59 (78) Intake and Output 10/22/18 10/22/18 10/23/18 1515:00 23:00 07:00 IntakeIntake Total 320 ml BalanceBalance 320 ml Exam H EENT exam; supple neck, no JVD. No lymphadenopathy. Midline trachea. No thyromegaly. Patient has fair dentition. No neck masses. No stridor. Pupils are small bilaterally. Chest exam; bilateral wheezing. S1-S2 audible, no murmurs. Regular rhythm. Abdomen exam; soft, nontender. No organomegaly. Bowel sounds audible. Extremity exam; no peripheral edema or clubbing. Pulses 2+. STAFFING ANALYST exam; no focal deficit. Medications Medications Current Medications IV Flush (NS 3 ml) 3 ml PER PROTOCOL IV ; Start 10/15/18 at 00:30 Ondansetron HCl (Zofran Inj) 4 mg Q6H PRN IV NAUSEA AND/OR VOMITING; Start 10/02 01/18 at 00:30 Acetaminophen (Tylenol Tab) 650 mg Q6H PRN PO PAIN LEVEL 1-3 OR FEVER; Start 10/15/18 at 00:30 Albuterol/ Ipratropium (Duoneb) 3 ml Q4H RESP THERAPY PRN HHN WHEEZING; Start 10/15/18 at 01:00 Albuterol/ Ipratropium (Duoneb) 3 ml Q4H RESP THERAPY HHN Last administered on 10/23/18at 08:54; Admin Dose 3 ML; Start 10/15/18 at 01:00 Amlodipine Besylate (Norvasc) 5 mg DAILY PO Last administered on 10/23/18at 08:35; Admin Dose 5 MG; Start 10/15/18 at 09:00 Diclofenac Sodium (Voltaren) 50 mg BID PO Last administered on 10/23/18at 08:34; Admin Dose 50 MG; Start 10/15/18 at 09:00 Pantoprazole (Protonix Tab) 40 mg DAILY@06 PO Last administered on 10/23/18at 05:31; Admin Dose 40 MG; Start 10/16/18 at 06:00 Levofloxacin (Levaquin) 750 mg DAILY@06 PO Last administered on 10/23/18 05:31 ; Admin Dose 750 MG; Start 10/17/18 at 06:00; Stop 10/27/18 at 05:59 Acetylcysteine (Mucomyst) 2 ml Q6H RESP THERAPY NEB Last administered on 10/23/18 08:54; Admin Dose 2 ML; Start 10/17/18 at 20:00 Docusate Sodium (Colace) 200 mg Q12H PRN PO CONSTIPATION Last administered on 10/19/18 12:39; Admin Dose 200 MG; Start 10/19/18 at 12:30 Sodium Chloride (Deep Sea) 1 spray PRN PRN NASAL NASAL CONGESTION Last administered on 10/23/18 09:50; Admin Dose 1 SPRAY; Start 10/19/18 at 11:30 Montelukast Sodium (Singulair) 10 mg HS PO Last administered on 10/22/18 21:49; Admin Dose 10 MG; Start 10/20/18 at 21:00 Tiotropium [place] (Spiriva) 1 inh DAILY INH Last administered on 10/23/18 08:35; Admin Dose 1 INH; Start 10/20/18 at 17:00 Bisacodyl (Dulcolax) 10 mg DAILY PRN PO CONSTIPATION Last administered on 10/20/18 20:55; Admin Dose 10 MG; Start 10/20/18 at 16:00 Fluticasone/ Vilanterol (Breo Ellipta 200-25 Mcg Inh) 1 inh DAILY INH Last administered on 10/23/18 08:37; Admin Dose 1 INH; Start 10/22/18 at 09:00 Theophylline (Sp-Dur) 300 mg DAILY PO Last administered on 10/23/18 08:34; Admin Dose 300 MG; Start 10/21/18 at 14:00 Methylprednisolone Sodium Succinate (Solu-Medrol) 60 mg Q8 IV Last administered on 10/23/18 05:31; Admin Dose 60 MG; Start 10/22/18 at 22:00 Enoxaparin Sodium (Lovenox) 40 mg DAILY SC Last administered on 10/23/18 08:39; Admin Dose 40 MG; Start 10/23/18 at 09:00 BESSY WORTHINGTON Oct 23, 2018 10:01
[2018-10-23 14:41] VITALS: BP 104/54; PULSE 99; RESP 16
--- NOTE | 2018-10-23 17:55 | NUR ---
rn notes patient is alert and oriented X4, verbally responsive and able to make needs known, denies pain and discomfort. no acute distress noted, on O2 @5l/m via nasal canula, incentive spirometer given. ambulates in hallway. skin is dry and intact, no skin issues noted. all due medicine given and all needs attended to. call light placed within reach and fall precautions observed well. remains afebrile and will continue to monitor.
[2018-10-23 20:00] VITALS: BP 119/64; PULSE 90; RESP 18
[2018-10-23] MEDS: MONTELUKAST 10 MG TAB PO SCH (20:22)
[2018-10-24] MEDS: ACETYLCYSTEINE 20% 4 ML VIAL NEB SCH ×4 (01:25→21:01)
[2018-10-24] MEDS: ALBUTEROL/IPRATROPIUM (NEB) 3 ML AMP HHN SCH ×6 (01:25→21:01)
[2018-10-24 02:00] VITALS: BP 123/57; PULSE 79; RESP 18
--- NOTE | 2018-10-24 06:17 | NUR ---
End of shift RN Note: No acute changes during my shift. Pt slept comfortably through most of the night. Pt denies SOB, vital signs stable with nasal canula at 5L. Pt shows no signs of acute distress. Will endorse plan of care to next shift.
[2018-10-24] MEDS: LEVOFLOXACIN 750 MG TABLET PO SCH (06:40)
[2018-10-24] MEDS: METHYLPREDNISOLONE 125 MG INJ IV SCH ×3 (06:40→21:54)
[2018-10-24] MEDS: PANTOPRAZOLE (EC) 40 MG TAB PO SCH (06:41)
[2018-10-24 08:01] VITALS: BP 125/58; PULSE 71; RESP 18
[2018-10-24] MEDS: ENOXAPARIN 40 MG/0.4 ML SYG SC SCH (09:25)
[2018-10-24] MEDS: FLUTICASONE/VILANTEROL 200-25 INH DEVICE INH SCH (09:26)
[2018-10-24] MEDS: THEOPHYLLINE (SR) 300 MG TAB PO SCH (09:26)
[2018-10-24] MEDS: DICLOFENAC (EC) 25 MG TAB PO SCH ×2 (09:26→20:34)
[2018-10-24] MEDS: TIOTROPIUM 18 MCG CAPSULE INHA DEV INH SCH (09:27)
[2018-10-24] MEDS: AMLODIPINE 5 MG TAB PO SCH (09:28)
--- NOTE | 2018-10-24 10:41 | CONS ---
Assessment/Plan Assessment/Plan Assessment/Plan Assessment and recommendations; 1. Patient admitted for severe asthma exacerbation and acute bronchitis with very slow clinical improvement. 2. History of hypertension. 3. Mild anemia. Continue current supportive care. Possible steroid taper in 24 hours as dictated by clinical status. Result Diagram: 10/24/18 0504 10/24/18 0504 Results 24hrs Laboratory Tests Test 10/24/18 05:04 White Blood Count 11.0 #H Red Blood Count 3.75 L Hemoglobin 11.6 L Hematocrit 35.3 L Mean Corpuscular Volume 94.1 Mean Corpuscular Hemoglobin 30.9 Mean Corpuscular Hemoglobin Concent 32.9 Red Cell Distribution Width 12.7 Platelet Count 355 Mean Platelet Volume 8.5 Immature Granulocytes % 4.600 H Neutrophils % 83.8 H Lymphocytes % 7.8 L Monocytes % 3.5 Eosinophils % 0.0 Basophils % 0.3 Nucleated Red Blood Cells % 0.0 Immature Granulocytes # 0.510 H Neutrophils # 9.2 H Lymphocytes # 0.9 Monocytes # 0.4 Eosinophils # 0.0 Basophils # 0.0 Nucleated Red Blood Cells # 0.0 Sodium Level 139 Potassium Level 4.4 Chloride Level 96 L Carbon Dioxide Level 31 Anion Gap 12 Blood Urea Nitrogen 19 Creatinine 0.56 Est Glomerular Filtrat Rate mL/min Glucose Level 142 Calcium Level 8.6 Phosphorus Level 4.6 Magnesium Level 2.3 Consultation Date/Type/Reason Admit Date/Time Oct 14, 2018 at 22:32 Initial Consult Date 10/23/18 Type of Consult Pulmonary Patient is a pleasant 77-year-old lady who came into the hospital with a few days history of coughing, chest congestion and wheezing. Patient was diagnosed with asthma exacerbation and started on appropriate bronchodilator regimen with Levaquin. However after decreasing Solu-Medrol dosing patient developed worsening wheezing requiring increased supplemental dosing yesterday. Patient is feeling somewhat better but still complains of mild wheezing with scant cough without any sputum production.. Denies any fever, chills, body aches or myalgias. Past medical history; 1. History of hypertension. 2. Asthma. Medications; reviewed. Allergies; none. Social history; patient has been a lifelong non-smoker. Family history; noncontributory. Occupational history; patient has been a housewife. Review of systems; denies any headache, sinus symptoms. Any seizures. Any sore throat, dysphagia. Compressive very minimal cough and wheezing. Denies any sputum production, hemoptysis any fever or chills. Any chest pain. Denies any abdominal pain, nausea vomiting. Any body aches or myalgias. Any orthopnea. Any edema. Any GI or urinary symptoms. Any weight loss. Denies any chronic symptoms of asthma. General exam; elderly female, awake alert, currently no distress. Sitting in a chair by bedside. 24 HR Interval Summary Free Text/Dictation Patient's condition is gradually improving. Still complains of wheezing and shortness of breath upon exertion. Complains of cough. Denies any sputum production. Patient has been ambulatory in the room. General exam; elderly female, awake alert. Currently in no distress. Exam/Review of Systems Vital Signs Vitals Vital Signs Date Temp Pulse Resp B/P (MAP) Pulse Ox O2 O2 Flow FiO2 Time Delivery Rate 10/24/18 Nasal 5.0 10:02 Cannula 10/24/18 79 20 97 08:07 10/24/18 98.5 125/58 08:01 (80) Intake and Output 10/23/18 10/23/18 10/24/18 1515:00 23:00 07:00 IntakeIntake Total 500 ml 600 ml 500 ml BalanceBalance 500 ml 600 ml 500 ml Exam H EENT exam; supple neck, no JVD. No lymphadenopathy. Midline trachea. No thyromegaly. Patient has fair dentition. No neck masses. Chest exam; diminished breath sounds bilaterally with bilateral expiratory wheezing. S1-S2 audible, no murmurs. Regular rhythm. Abdomen exam; soft, no organomegaly. Nontender. Bowel sounds audible. Extremity exam; no peripheral edema clubbing. ROENTGENOLOGY TEACHER exam; no focal deficit. Medications Medications Current Medications IV Flush (NS 3 ml) 3 ml PER PROTOCOL IV ; Start 10/15/18 at 00:30 Ondansetron HCl (Zofran Inj) 4 mg Q6H PRN IV NAUSEA AND/OR VOMITING; Start 10/15/18 at 00:30 Acetaminophen (Tylenol Tab) 650 mg Q6H PRN PO PAIN LEVEL 1-3 OR FEVER; Start 10/15/18 at 00:30 Albuterol/ Ipratropium (Duoneb) 3 ml Q4H RESP THERAPY PRN HHN WHEEZING; Start 10/15/18 at 01:00 Albuterol/ Ipratropium (Duoneb) 3 ml Q4H RESP THERAPY HHN Last administered on 10/24/18 07:55; Admin Dose 3 ML; Start 10/15/18 at 01:00 Amlodipine Besylate (Norvasc) 5 mg DAILY PO Last administered on 10/24/18 09:28; Admin Dose 5 MG; Start 10/15/18 at 09:00 Diclofenac Sodium (Voltaren) 50 mg BID PO Last administered on 10/24/18 09:26; Admin Dose 50 MG; Start 10/15/18 at 09:00 Pantoprazole (Protonix Tab) 40 mg DAILY@06 PO Last administered on 10/24/18 06:41; Admin Dose 40 MG; Start 10/16/18 at 06:00 Levofloxacin (Levaquin) 750 mg DAILY@06 PO Last administered on 10/24/18 06:40; Admin Dose 750 MG; Start 10/17/18 at 06:00; Stop 10/27/18 at 05:59 Acetylcysteine (Mucomyst) 2 ml Q6H RESP THERAPY NEB Last administered on 10/24/18 07:55; Admin Dose 2 ML; Start 10/17/18 at 20:00 Docusate Sodium (Colace) 200 mg Q12H PRN PO CONSTIPATION Last administered on 10/19/18 12:39; Admin Dose 200 MG; Start 10/19/18 at 12:30 Sodium Chloride (Deep Sea) 1 spray PRN PRN NASAL NASAL CONGESTION Last administered on 10/23/18 09:50; Admin Dose 1 SPRAY; Start 10/19/18 at 11:30 Montelukast Sodium (Singulair) 10 mg HS PO Last administered on 10/23/18 20:22; Admin Dose 10 MG; Start 10/20/18 at 21:00 Tiotropium [place] (Spiriva) 1 inh DAILY INH Last administered on 10/24/18 09:27; Admin Dose 1 INH; Start 10/20/18 at 17:00 Bisacodyl (Dulcolax) 10 mg DAILY PRN PO CONSTIPATION Last administered on 10/20/18 20:55; Admin Dose 10 MG; Start 10/20/18 at 16:00 Fluticasone/ Vilanterol (Breo Ellipta 200-25 Mcg Inh) 1 inh DAILY INH Last administered on 10/24/18at 09:26; Admin Dose 1 INH; Start 10/22/18 at 09:00 Theophylline (Sp-Dur) 300 mg DAILY PO Last administered on 10/24/18at 09:26; Admin Dose 300 MG; Start 10/21/18 at 14:00 Methylprednisolone Sodium Succinate (Solu-Medrol) 60 mg Q8 IV Last administered on 10/24/18at 06:40; Admin Dose 60 MG; Start 10/22/18 at 22:00 Enoxaparin Sodium (Lovenox) 40 mg DAILY SC Last administered on 10/24/18at 09:25; Admin Dose 40 MG; Start 10/23/18 at 09:00 Date/Time of Note Date/Time of Note DATE: 10/24/18 TIME: 10:38 BESSY WORTHINGTON Oct 24, 2018 10:41
--- NOTE | 2018-10-24 11:29 | PN ---
Date/Time of Note Date/Time of Note DATE: 10/24/18 TIME: 11:28 Assessment/Plan VTE Prophylaxis Risk score (from Ns)>0 risk: 5 SCD applied (from Ns): Yes Pharmacological prophylaxis: LMWH Lines/Catheters IV [facility]ter [facility] (from [facility] Saline Lock Urinary Cath still in place: No Assessment/Plan Hospital Course SUBJECTIVE: Continues to remain on supplemental oxygen. OBJECTIVE: Physical Exam General: Adequately build 77 year-old female lying in bed in no apparent distress. HEENT: Normocephalic, atraumatic. Eyes: Anicteric sclerae, conjunctivae clear. ENT: Nasal septum midline, oral mucosa moist. Neck supple, no JVD noticed. Respiratory: Bilaterally diminished breath sounds. No use of accessory muscles of respiration. Bilateral expiratory wheezing. Cardiovascular: S1, S2 heard. Regular rate and rhythm. Abdomen: Soft, nontender, and nondistended. Bowel sounds positive in all 4 quadrants. Genitourinary: Deferred. Extremities: No cyanosis, no clubbing. Trace bilateral lower extremity edema. Peripheral pulses palpable. Neurologic: Cranial nerves II through XII grossly intact. The patient is awake, alert, and oriented. Skin: Normal skin turgor. No skin rashes. Labs & Vitals per chart ASSESSMENT & PLAN 71-year-old female with comorbidities including hypertension, obesity, and asthma, who went to an outside facility emergency room because of dyspnea and cough. The patient was transferred to [facility] further evaluation because of insurance reasons. 1. Asthma exacerbation. -Continue inhaled bronchodilators ALEJANDRO & LABA. -Continue leukotriene inhibitors. -Continue theophylline. Check a.m. theophylline levels. -Continue tapering dose of steroids. 2. Significant volume loss of the right middle and lower lobe with subsegmental atelectasis. -Pulmonary evaluation. 3. Suspect community-acquired pneumonia. -Continue antimicrobials. 4. Essential hypertension. -Continue antihypertensives 5. Fluids, electrolytes, and nutrition. -Low-cholesterol diet. 6. DVT prophylaxis. -Subcutaneous Lovenox. 7. Plan. -Continue inhaled bronchodilators -Continue antibiotics. -Await clinical improvement. -Titrate down FiO2 before the patient can be safely discharged home (currently on 5 L of oxygen via nasal cannula). The patient was seen in collaboration with Dr. Bucio. Result Diagram: 10/24/18 0504 10/24/18 0504 Results 24hrs Laboratory Tests Test 10/24/18 05:04 White Blood Count 11.0 #H Red Blood Count 3.75 L Hemoglobin 11.6 L Hematocrit 35.3 L Mean Corpuscular Volume 94.1 Mean Corpuscular Hemoglobin 30.9 Mean Corpuscular Hemoglobin Concent 32.9 Red Cell Distribution Width 12.7 Platelet Count 355 Mean Platelet Volume 8.5 Immature Granulocytes % 4.600 H Neutrophils % 83.8 H Lymphocytes % 7.8 L Monocytes % 3.5 Eosinophils % 0.0 Basophils % 0.3 Nucleated Red Blood Cells % 0.0 Immature Granulocytes # 0.510 H Neutrophils # 9.2 H Lymphocytes # 0.9 Monocytes # 0.4 Eosinophils # 0.0 Basophils # 0.0 Nucleated Red Blood Cells # 0.0 Sodium Level 139 Potassium Level 4.4 Chloride Level 96 L Carbon Dioxide Level 31 Anion Gap 12 Blood Urea Nitrogen 19 Creatinine 0.56 Est Glomerular Filtrat Rate mL/min Glucose Level 142 Calcium Level 8.6 Phosphorus Level 4.6 Magnesium Level 2.3 Exam/Review of Systems Vital Signs Vitals Vital Signs Date Temp Pulse Resp B/P (MAP) Pulse Ox O2 O2 Flow FiO2 Time Delivery Rate 10/24/18 Nasal 5.0 10:02 Cannula 10/24/18 79 20 97 08:07 10/24/18 98.5 125/58 08:01 (80) Intake and Output 10/23/18 10/23/18 10/24/18 1515:00 23:00 07:00 IntakeIntake Total 500 ml 600 ml 500 ml BalanceBalance 500 ml 600 ml 500 ml Medications Medications Current Medications IV Flush (NS 3 ml) 3 ml PER PROTOCOL IV ; Start 10/15/18 at 00:30 Ondansetron HCl (Zofran Inj) 4 mg Q6H PRN IV NAUSEA AND/OR VOMITING; Start 10/15/18 at 00:30 Acetaminophen (Tylenol Tab) 650 mg Q6H PRN PO PAIN LEVEL 1-3 OR FEVER; Start 10/15/18 at 00:30 Albuterol/ Ipratropium (Duoneb) 3 ml Q4H RESP THERAPY PRN HHN WHEEZING; Start 10/15/18 at 01:00 Albuterol/ Ipratropium (Duoneb) 3 ml Q4H RESP THERAPY HHN Last administered on 10/24/18 07:55; Admin Dose 3 ML; Start 10/15/18 at 01:00 Amlodipine Besylate (Norvasc) 5 mg DAILY PO Last administered on 10/24/18 09:28; Admin Dose 5 MG; Start 10/15/18 at 09:00 Diclofenac Sodium (Voltaren) 50 mg BID PO Last administered on 10/24/18 09:26; Admin Dose 50 MG; Start 10/15/18 at 09:00 Pantoprazole (Protonix Tab) 40 mg DAILY@06 PO Last administered on 10/24/18 06:41; Admin Dose 40 MG; Start 10/16/18 at 06:00 Levofloxacin (Levaquin) 750 mg DAILY@06 PO Last administered on 10/24/18 06:40; Admin Dose 750 MG; Start 10/17/18 at 06:00; Stop 10/27/18 at 05:59 Acetylcysteine (Mucomyst) 2 ml Q6H RESP THERAPY NEB Last administered on 10/24/18 07:55; Admin Dose 2 ML; Start 10/17/18 at 20:00 Docusate Sodium (Colace) 200 mg Q12H PRN PO CONSTIPATION Last administered on 10/19/18 12:39; Admin Dose 200 MG; Start 10/19/18 at 12:30 Sodium Chloride (Deep Sea) 1 spray PRN PRN NASAL NASAL CONGESTION Last administered on 10/23/18 09:50; Admin Dose 1 SPRAY; Start 10/19/18 at 11:30 Montelukast Sodium (Singulair) 10 mg HS PO Last administered on 10/23/18 20:22; Admin Dose 10 MG; Start 10/20/18 at 21:00 Tiotropium [place] (Spiriva) 1 inh DAILY INH Last administered on 10/24/18 09:27; Admin Dose 1 INH; Start 10/20/18 at 17:00 Bisacodyl (Dulcolax) 10 mg DAILY PRN PO CONSTIPATION Last administered on 10/20/18 20:55; Admin Dose 10 MG; Start 10/20/18 at 16:00 Fluticasone/ Vilanterol (Breo Ellipta 200-25 Mcg Inh) 1 inh DAILY INH Last administered on 10/24/18 09:26; Admin Dose 1 INH; Start 10/22/18 at 09:00 Theophylline (Sp-Dur) 300 mg DAILY PO Last administered on 10/24/18at 09:26; Admin Dose 300 MG; Start 10/21/18 at 14:00 Methylprednisolone Sodium Succinate (Solu-Medrol) 60 mg Q8 IV Last administered on 10/24/18at 06:40; Admin Dose 60 MG; Start 10/22/18 at 22:00 Enoxaparin Sodium (Lovenox) 40 mg DAILY SC Last administered on 10/24/18at 09:25; Admin Dose 40 MG; Start 10/23/18 at 09:00 CARLOS GREEN NP Oct 24, 2018 11:29
[2018-10-24 14:46] VITALS: BP 115/59; PULSE 88; RESP 20
--- NOTE | 2018-10-24 17:49 | NUR ---
NURSE NOTES: patient alert and oriented x 4, able to make needs known. No SOB or distress. on oxygen via nasal cannula. Breathing treatments were given by RT as ordered.All due medications were given tolerated well. safety precautions observed at all times. Encouraged to use call light and telephone whenever assistance is needed. Patient refused bed and chair alarm. Explained the importance of the bed and chair alarm but still patient refused. Will continue to monitor. Will endorse accordingly to next shift for continuity of care.
[2018-10-24 20:00] VITALS: BP 114/58; PULSE 90; RESP 18
[2018-10-24] MEDS: MONTELUKAST 10 MG TAB PO SCH (20:34)
[2018-10-25] MEDS: ACETYLCYSTEINE 20% 4 ML VIAL NEB SCH ×4 (00:27→20:22)
[2018-10-25] MEDS: ALBUTEROL/IPRATROPIUM (NEB) 3 ML AMP HHN SCH ×6 (00:27→20:21)
[2018-10-25 02:00] VITALS: BP 110/57; PULSE 101; RESP 19
[2018-10-25] MEDS: DOCUSATE SODIUM 100 MG CAP PO PRN ×2 (02:22→21:25)
[2018-10-25] MEDS: METHYLPREDNISOLONE 125 MG INJ IV SCH ×3 (05:20→21:25)
[2018-10-25] MEDS: LEVOFLOXACIN 750 MG TABLET PO SCH (05:20)
[2018-10-25] MEDS: PANTOPRAZOLE (EC) 40 MG TAB PO SCH (05:20)
--- NOTE | 2018-10-25 06:24 | NUR ---
VS stable. Weaning pt off O2 and sating 93% on 3L O2 via NC. Pt denies having pain. No acute changes during shift. Hourly rounding provided with call light within reach. Fall precautions observed. Will endorse continuity of care to oncoming nurse. Addendum: 10/25/18 at 0626 by JASPER PERRIN RN SCDs on and off
[2018-10-25] MEDS: THEOPHYLLINE (SR) 300 MG TAB PO SCH (08:27)
[2018-10-25] MEDS: DICLOFENAC (EC) 25 MG TAB PO SCH ×2 (08:27→21:25)
[2018-10-25] MEDS: FLUTICASONE/VILANTEROL 200-25 INH DEVICE INH SCH (08:27)
[2018-10-25] MEDS: ENOXAPARIN 40 MG/0.4 ML SYG SC SCH (08:29)
[2018-10-25] MEDS: AMLODIPINE 5 MG TAB PO SCH (08:32)
--- NOTE | 2018-10-25 10:02 | CONS ---
Assessment/Plan Assessment/Plan Assessment/Plan Assessment and recommendations; 1. Patient admitted with asthma exacerbation with acute bronchitis with a slow clinical improvement. 2. History of hypertension. Continue current supportive care. Continue current Solu-Medrol dosing. Result Diagram: 10/24/18 0504 10/24/18 0504 Consultation Date/Type/Reason Admit Date/Time Oct 14, 2018 at 22:32 Initial Consult Date 10/23/18 Type of Consult Pulmonary Patient is a pleasant 77-year-old lady who came into the hospital with a few days history of coughing, chest congestion and wheezing. Patient was diagnosed with asthma exacerbation and started on appropriate bronchodilator regimen with Levaquin. However after decreasing Solu-Medrol dosing patient developed worsening wheezing requiring increased supplemental dosing yesterday. Patient is feeling somewhat better but still complains of mild wheezing with scant cough without any sputum production.. Denies any fever, chills, body aches or myalgias. Past medical history; 1. History of hypertension. 2. Asthma. Medications; reviewed. Allergies; none. Social history; patient has been a lifelong non-smoker. Family history; noncontributory. Occupational history; patient has been a housewife. Review of systems; denies any headache, sinus symptoms. Any seizures. Any sore throat, dysphagia. Compressive very minimal cough and wheezing. Denies any sputum production, hemoptysis any fever or chills. Any chest pain. Denies any abdominal pain, nausea vomiting. Any body aches or myalgias. Any orthopnea. Any edema. Any GI or urinary symptoms. Any weight loss. Denies any chronic symptoms of asthma. General exam; elderly female, awake alert, currently no distress. Sitting in a chair by bedside. 24 HR Interval Summary Free Text/Dictation Patient's condition is slightly improved. Still complains of wheezing and chest congestion. Patient has been ambulating in the room. Denies any dyspnea on exertion. General exam; elderly female, awake alert, currently no distress. Exam/Review of Systems Vital Signs Vitals Vital Signs Date Temp Pulse Resp B/P (MAP) Pulse Ox O2 O2 Flow FiO2 Time Delivery Rate 10/25/18 103 22 91 Nasal 4.0 08:39 Cannula 10/25/18 98.4 110/57 02:00 (74) Intake and Output 10/24/18 10/24/18 10/25/18 1414:59 22:59 06:59 IntakeIntake Total 240 ml 900 ml BalanceBalance 240 ml 900 ml Exam H EENT exam; supple neck, no JVD. No lymphadenopathy. Midline trachea. No thyromegaly. Patient has fair dentition. No neck masses. Chest exam; bilateral expiratory wheezing. S1-S2 audible, no murmurs. Regular rhythm. Abdomen exam; soft, no organomegaly. Nontender. Bowel sounds audible. Extremity exam; no peripheral edema clubbing. RN OR LPN exam; no focal deficit. Medications Medications Current Medications IV Flush (NS 3 ml) 3 ml PER PROTOCOL IV ; Start 10/15/18 at 00:30 Ondansetron HCl (Zofran Inj) 4 mg Q6H PRN IV NAUSEA AND/OR VOMITING; Start 10/15/18 at 00:30 Acetaminophen (Tylenol Tab) 650 mg Q6H PRN PO PAIN LEVEL 1-3 OR FEVER; Start 10/15/18 at 00:30 Albuterol/ Ipratropium (Duoneb) 3 ml Q4H RESP THERAPY PRN HHN WHEEZING; Start 10/15/18 at 01:00 Albuterol/ Ipratropium (Duoneb) 3 ml Q4H RESP THERAPY HHN Last administered on 10/25/18 08:33; Admin Dose 3 ML; Start 10/15/18 at 01:00 Amlodipine Besylate (Norvasc) 5 mg DAILY PO Last administered on 10/25/18 08:32; Admin Dose 5 MG; Start 10/15/18 at 09:00 Diclofenac Sodium (Voltaren) 50 mg BID PO Last administered on 10/25/18 08:27; Admin Dose 50 MG; Start 10/15/18 at 09:00 Pantoprazole (Protonix Tab) 40 mg DAILY@06 PO Last administered on 10/25/18 05:20; Admin Dose 40 MG; Start 10/16/18 at 06:00 Levofloxacin (Levaquin) 750 mg DAILY@06 PO Last administered on 10/25/18 05:20; Admin Dose 750 MG; Start 10/17/18 at 06:00; Stop 10/27/18 at 05:59 Acetylcysteine (Mucomyst) 2 ml Q6H RESP THERAPY NEB Last administered on 1/24/19at 08:33; Admin Dose 2 ML; Start 10/17/18 at 20:00 Docusate Sodium (Colace) 200 mg Q12H PRN PO CONSTIPATION Last administered on 10/25/18 02:22; Admin Dose 200 MG; Start 10/19/18 at 12:30 Sodium Chloride (Deep Sea) 1 spray PRN PRN NASAL NASAL CONGESTION Last admin istered on 10/23/18 09:50; Admin Dose 1 SPRAY; Start 10/19/18 at 11:30 Montelukast Sodium (Singulair) 10 mg HS PO Last administered on 10/24/18 20:34; Admin Dose 10 MG; Start 10/20/18 at 21:00 Tiotropium [place] (Spiriva) 1 inh DAILY INH Last administered on 10/24/18 09:27; Admin Dose 1 INH; Start 10/20/18 at 17:00 Bisacodyl (Dulcolax) 10 mg DAILY PRN PO CONSTIPATION Last administered on 10/02 20:55; Admin Dose 10 MG; Start 10/20/18 at 16:00 Fluticasone/ Vilanterol (Breo Ellipta 200-25 Mcg Inh) 1 inh DAILY INH Last administered on 10/25/18 08:27; Admin Dose 1 INH; Start 10/22/18 at 09:00 Theophylline (Sp-Dur) 300 mg DAILY PO Last administered on 10/25/18 08:27; Admin Dose 300 MG; Start 10/21/18 at 14:00 Methylprednisolone Sodium Succinate (Solu-Medrol) 60 mg Q8 IV Last administered on 10/25/18 05:20; Admin Dose 60 MG; Start 10/22/18 at 22:00 Enoxaparin Sodium (Lovenox) 40 mg DAILY SC Last administered on 10/25/18 08:29; Admin Dose 40 MG; Start 10/23/18 at 09:00 Date/Time of Note Date/Time of Note DATE: 10/25/18 TIME: 10:01 BESSY WORTHINGTON Oct 25, 2018 10:02
[2018-10-25] MEDS: TIOTROPIUM 18 MCG CAPSULE INHA DEV INH SCH (13:38)
[2018-10-25 13:49] VITALS: BP 100/54; PULSE 74; RESP 20
--- NOTE | 2018-10-25 15:15 | NUR ---
ORDER FOR HOME O2 FAXED TO [facility] T [phone], F [phone] FOR AUTHORIZATION AND ARRANGEMENTS. WILL FF UP. Addendum: 10/25/18 at 1518 by IRINA SANCHEZ CM Amended: Links added. Addendum: 10/25/18 at 1652 by IRINA ALBERTSOT CM PER [facility]. [facility]. FAXED ORDER TO FOR UP.
--- NOTE | 2018-10-25 17:21 | PN ---
Date/Time of Note Date/Time of Note DATE: 10/25/18 TIME: 17:19 Assessment/Plan VTE Prophylaxis Risk score (from Ns)>0 risk: 5 SCD applied (from Ns): Yes Pharmacological prophylaxis: LMWH Lines/Catheters IV [facility]from [facility] Saline Lock Urinary Cath still in place: No Assessment/Plan Assessment/Plan 71-year-old female with comorbidities including hypertension, obesity, and asthma, who went to an outside facility emergency room because of dyspnea and cough. The patient was transferred to [facility] further evaluation because of insurance reasons. 1. Asthma exacerbation. -Continue inhaled bronchodilators ALEJANDRO & LABA. -Continue leukotriene inhibitors. -Continue theophylline. Check a.m. theophylline levels. -Continue tapering dose of steroids. 2. Significant volume loss of the right middle and lower lobe with subsegmental atelectasis. -Pulmonary evaluation. 3. Suspect community-acquired pneumonia. -Continue antimicrobials. 4. Essential hypertension. -Continue antihypertensives 5. Fluids, electrolytes, and nutrition. -Low-cholesterol diet. 6. DVT prophylaxis. -Subcutaneous Lovenox. 7. Plan. -Continue inhaled bronchodilators -Continue antibiotics. -Await clinical improvement. - Anticipate home oxygen. Case management consulted. Result Diagram: 10/25/18 1004 10/25/18 1004 Results 24hrs Laboratory Tests Test 10/25/18 10:04 White Blood Count 9.9 Red Blood Count 3.84 L Hemoglobin 12.0 Hematocrit 36.1 L Mean Corpuscular Volume 94.0 Mean Corpuscular Hemoglobin 31.3 Mean Corpuscular Hemoglobin Concent 33.2 Red Cell Distribution Width 12.9 Platelet Count 343 Mean Platelet Volume 8.5 Immature Granulocytes % 5.600 H Neutrophils % 87.0 H Lymphocytes % 3.7 L Monocytes % 3.5 Eosinophils % 0.0 Basophils % 0.2 Nucleated Red Blood Cells % 0.0 Immature Granulocytes # 0.550 H Neutrophils # 8.6 H Lymphocytes # 0.4 L Monocytes # 0.4 Eosinophils # 0.0 Basophils # 0.0 Nucleated Red Blood Cells # 0.0 Sodium Level 135 Potassium Level 3.9 Chloride Level 98 Carbon Dioxide Level 24 Anion Gap 13 Blood Urea Nitrogen 20 Creatinine 0.56 Est Glomerular Filtrat Rate mL/min Glucose Level 262 #H Calcium Level 9.0 Phosphorus Level 4.0 Magnesium Level 2.2 Total Bilirubin 0.1 L Direct Bilirubin 0.00 Indirect Bilirubin 0.1 Aspartate Amino Transf (AST/SGOT) 23 Alanine Aminotransferase (ALT/SGPT) 19 Alkaline Phosphatase 60 Total Protein 6.2 Albumin 3.3 Globulin 2.90 Albumin/Globulin Ratio 1.13 Subjective 24 Hr Interval Summary Free Text/Dictation Patient feeling well. No complaints. Able to ambulate unassisted but oxygen sat drops <88% on room air. Exam/Review of Systems Exam Vitals General: Adequately build 77 year-old female sitting up eating dinner, no distress. HEENT: Normocephalic, atraumatic. Eyes: Anicteric sclerae, conjunctivae clear. E NT: Nasal septum midline, oral mucosa moist. Neck supple, no JVD noticed. Respiratory: Bilaterally diminished breath sounds. No use of accessory muscles of respiration. Bilateral expiratory wheezing. Cardiovascular: S1, S2 heard. Regular rate and rhythm. Abdomen: Soft, nontender, and nondistended. Bowel sounds positive in all 4 quadrants. Extremities: No cyanosis, no clubbing. Trace bilateral lower extremity edema. Peripheral pulses palpable. Skin: Normal skin turgor. No skin rashes. Results Results 24hrs Laboratory Tests Test 10/25/18 10:04 White Blood Count 9.9 Red Blood Count 3.84 L Hemoglobin 12.0 Hematocrit 36.1 L Mean Corpuscular Volume 94.0 Mean Corpuscular Hemoglobin 31.3 Mean Corpuscular Hemoglobin Concent 33.2 Red Cell Distribution Width 12.9 Platelet Count 343 Mean Platelet Volume 8.5 Immature Granulocytes % 5.600 H Neutrophils % 87.0 H Lymphocytes % 3.7 L Monocytes % 3.5 Eosinophils % 0.0 Basophils % 0.2 Nucleated Red Blood Cells % 0.0 Immature Granulocytes # 0.550 H Neutrophils # 8.6 H Lymphocytes # 0.4 L Monocytes # 0.4 Eosinophils # 0.0 Basophils # 0.0 Nucleated Red Blood Cells # 0.0 Sodium Level 135 Potassium Level 3.9 Chloride Level 98 Carbon Dioxide Level 24 Anion Gap 13 Blood Urea Nitrogen 20 Creatinine 0.56 Est Glomerular Filtrat Rate mL/min Glucose Level 262 #H Calcium Level 9.0 Phosphorus Level 4.0 Magnesium Level 2.2 Total Bilirubin 0.1 L Direct Bilirubin 0.00 Indirect Bilirubin 0.1 Aspartate Amino Transf (AST/SGOT) 23 Alanine Aminotransferase (ALT/SGPT) 19 Alkaline Phosphatase 60 Total Protein 6.2 Albumin 3.3 Globulin 2.90 Albumin/Globulin Ratio 1.13 MATHIEU VYAS MD Oct 25, 2018 17:21
--- NOTE | 2018-10-25 18:36 | NUR ---
Patient is alert, awake and verbally responsive. Respiration are even and non labored. No acute distress or discomfort noted. Continue on nasal cannula 3L. Tolerated well. Spouse at bedside. Patient complain of mouth sore during this shift. MD is aware no new order at this time. Stable condition. Will endorse accordingly.
[2018-10-25] MEDS: SALINE 0.65% 45 ML NAS SPRAY NASAL PRN (19:11)
[2018-10-25 20:15] VITALS: BP 123/58; PULSE 110; RESP 18
[2018-10-25] MEDS: MONTELUKAST 10 MG TAB PO SCH (21:25)
[2018-10-26] MEDS: ACETYLCYSTEINE 20% 4 ML VIAL NEB SCH ×4 (01:24→20:00)
[2018-10-26] MEDS: ALBUTEROL/IPRATROPIUM (NEB) 3 ML AMP HHN SCH ×6 (01:24→20:14)
[2018-10-26 02:15] VITALS: BP 106/52; PULSE 117; RESP 18
[2018-10-26] MEDS: METHYLPREDNISOLONE 125 MG INJ IV SCH ×2 (05:25→14:17)
[2018-10-26] MEDS: PANTOPRAZOLE (EC) 40 MG TAB PO SCH (05:26)
[2018-10-26] MEDS: LEVOFLOXACIN 750 MG TABLET PO SCH (05:26)
--- NOTE | 2018-10-26 07:00 | NUR ---
Patient in room asleep with no signs of distress. Vital signs stable. Patient denied pain this shift. No other changes noted from previous. All needs met and medications administered per MD order. Patient turned every 2 hours and OOB. Safety precautions and hourly rounding currently in place until change of shift.
[2018-10-26 08:34] VITALS: BP 133/63; PULSE 89; RESP 18
[2018-10-26] MEDS: ENOXAPARIN 40 MG/0.4 ML SYG SC SCH (08:39)
[2018-10-26] MEDS: DICLOFENAC (EC) 25 MG TAB PO SCH ×2 (08:41→21:21)
[2018-10-26] MEDS: FLUTICASONE/VILANTEROL 200-25 INH DEVICE INH SCH (08:41)
[2018-10-26] MEDS: TIOTROPIUM 18 MCG CAPSULE INHA DEV INH SCH (08:41)
[2018-10-26] MEDS: THEOPHYLLINE (SR) 300 MG TAB PO SCH (08:41)
[2018-10-26] MEDS: AMLODIPINE 5 MG TAB PO SCH (08:41)
[2018-10-26] MEDS: SALINE 0.65% 45 ML NAS SPRAY NASAL PRN (08:42)
--- NOTE | 2018-10-26 11:33 | NUR ---
Discharge arrangements; Followed up with [facility], spoke with Jesse and authorization given to Judie White for home oxygen. Reached out to [employer] , spoke with Zeeshan and they were able to deliver portable home oxygen last night. Included [employer] [facility] contact information in discharge paperwork, will inform Care Team about home oxygen arrangements.
--- NOTE | 2018-10-26 13:18 | CONS ---
Consult Date/Type/Reason Admit Date/Time Oct 14, 2018 at 22:32 Initial Consult Date 10/23/18 Type of Consult Pulmonary Date/Time of Note DATE: 10/26/18 TIME: 13:17 Subjective Sitting up in chair comfortable no respiratory distress Objective Vital Signs Date Temp Pulse Resp B/P (MAP) Pulse Ox O2 O2 Flow FiO2 Time Delivery Rate 10/26/18 92 20 94 Nasal 4.0 13:13 Cannula 10/26/18 98.2 133/63 08:34 (86) Intake and Output 10/25/18 10/25/18 10/26/18 1515:00 23:00 07:00 IntakeIntake Total 960 ml 480 ml 1120 ml BalanceBalance 960 ml 480 ml 1120 ml Exam GENERAL: VITAL SIGNS: per chart NECK: Supple. No JVD or lymphadenopathy. CARDIAC EXAM: S1, S2. No added sounds or murmurs. CHEST: clear bilaterally, No added sounds, rales or wheezes ABDOMEN: Soft, nontender. No guarding or rebound. EXTREMITIES: No cyanosis, clubbing or edema. NEUROLOGIC: Generalized weakness. No focal deficits. Well-nourished well- developed lady comfortable at rest no acute distress Vent Setting Fraction of Inspired Oxygen pe: 40 Results/Medications Result Diagram: 10/25/18 1004 10/25/18 1004 Medications Current Medications IV Flush (NS 3 ml) 3 ml PER PROTOCOL IV ; Start 10/15/18 at 00:30 Ondansetron HCl (Zofran Inj) 4 mg Q6H PRN IV NAUSEA AND/OR VOMITING; Start 10/15/18 at 00:30 Acetaminophen (Tylenol Tab) 650 mg Q6H PRN PO PAIN LEVEL 1-3 OR FEVER; Start 10/15/18 at 00:30 Albuterol/ Ipratropium (Duoneb) 3 ml Q4H RESP THERAPY PRN HHN WHEEZING; Start 10/15/18 at 01:00 Albuterol/ Ipratropium (Duoneb) 3 ml Q4H RESP THERAPY HHN Last administered on 10/26/18at 13:10; Admin Dose 3 ML; Start 10/15/18 at 01:00 Amlodipine Besylate (Norvasc) 5 mg DAILY PO Last administered on 10/26/18at 08: 41; Admin Dose 5 MG; Start 10/15/18 at 09:00 Diclofenac Sodium (Voltaren) 50 mg BID PO Last administered on 10/26/18 08:41; Admin Dose 50 MG; Start 10/15/18 at 09:00 Pantoprazole (Protonix Tab) 40 mg DAILY@06 PO Last administered on 10/26/18 05:26; Admin Dose 40 MG; Start 10/16/18 at 06:00 Levofloxacin (Levaquin) 750 mg DAILY@06 PO Last administered on 10/26/18 05:26; Admin Dose 750 MG; Start 10/17/18 at 06:00; Stop 10/27/18 at 05:59 Acetylcysteine (Mucomyst) 2 ml Q6H RESP THERAPY NEB Last administered on 10/26/18 13:10; Admin Dose 2 ML; Start 10/17/18 at 20:00 Docusate Sodium (Colace) 200 mg Q12H PRN PO CONSTIPATION Last administered on 10/25/18 21:25; Admin Dose 200 MG; Start 10/19/18 at 12:30 Sodium Chloride (Deep Sea) 1 spray PRN PRN NASAL NASAL CONGESTION Last administered on 10/26/18 08:42; Admin Dose 1 SPRAY; Start 10/19/18 at 11:30 Montelukast Sodium (Singulair) 10 mg HS PO Last administered on 10/25/18 21:25; Admin Dose 10 MG; Start 10/20/18 at 21:00 Tiotropium [place] (Spiriva) 1 inh DAILY INH Last administered on 10/26/18 08:41; Admin Dose 1 INH; Start 10/20/18 at 17:00 Bisacodyl (Dulcolax) 10 mg DAILY PRN PO CONSTIPATION Last administered on 10/20/18 20:55; Admin Dose 10 MG; Start 10/20/18 at 16:00 Fluticasone/ Vilanterol (Breo Ellipta 200-25 Mcg Inh) 1 inh DAILY INH Last administered on 10/26/18 08:41; Admin Dose 1 INH; Start 10/22/18 at 09:00 Theophylline (Sp-Dur) 300 mg DAILY PO Last administered on 10/26/18 08:41; Admin Dose 300 MG; Start 10/21/18 at 14:00 Methylprednisolone Sodium Succinate (Solu-Medrol) 60 mg Q8 IV Last administered on 10/26/18at 05:25; Admin Dose 60 MG; Start 10/22/18 at 22:00 Enoxaparin Sodium (Lovenox) 40 mg DAILY SC Last administered on 10/26/18at 08:39; Admin Dose 40 MG; Start 10/23/18 at 09:00 Assessment/Plan Hospital Course (Demo Recall) Assessment 1. Acute tracheobronchitis resolving hypoxemic respiratory failure Plan 1. Continue incentive spirometry 2 bronchodilators 3. Follow-up with me as outpatient. SUZAN SCHMIDT MD, [facility] Oct 26, 2018 13:18
[2018-10-26 14:18] VITALS: BP 151/60; PULSE 96; RESP 18
--- NOTE | 2018-10-26 15:33 | PN ---
Date/Time of Note Date/Time of Note DATE: 10/26/18 TIME: 15:31 Assessment/Plan VTE Prophylaxis Risk score (from Ns)>0 risk: 6 SCD applied (from Ns): Yes Pharmacological prophylaxis: NA/contraindicated Pharm contraindication: low risk/ambulating Lines/Catheters IV C[facility]from [facility] [place] [facility] Urinary Cath still in place: No Assessment/Plan Assessment/Plan 71-year-old female with comorbidities including hypertension, obesity, and asthma, who went to an outside facility emergency room because of dyspnea and cough. The patient was transferred to [facility] further evaluation because of insurance reasons. 1. Asthma exacerbation. -Continue inhaled bronchodilators ALEJANDRO & LABA. -Continue leukotriene inhibitors. -Continue theophylline. Check a.m. theophylline levels. -Continue tapering dose of steroids. 2. Significant volume loss of the right middle and lower lobe with subsegmental atelectasis. -Pulmonary evaluation. 3. Suspect community-acquired pneumonia. -Continue antimicrobials. 4. Essential hypertension. -Continue antihypertensives 5. Fluids, electrolytes, and nutrition. -Low-cholesterol diet. 6. DVT prophylaxis. -Subcutaneous Lovenox. 7. Plan. - On very high dose steroids, now tapering. - Plan to discharge home tomorrow. Result Diagram: 10/25/18 1004 10/25/18 1004 Subjective 24 Hr Interval Summary Free Text/Dictation No acute overnight events. Home oxygen delivered. Patient requesting to stay one more night and go home tomorrow so she'll have a ride. Exam/Review of Systems Exam Vitals Vital Signs Date Temp Pulse Resp B/P (MAP) Pulse Ox O2 O2 Flow FiO2 Time Delivery Rate 10/26/18 98.6 96 18 151/60 93 14:18 (90) 10/26/18 Nasal 4.0 13:13 Cannula Intake and Output 10/25/18 10/25/18 10/26/18 1515:00 23:00 07:00 IntakeIntake Total 960 ml 480 ml 1120 ml BalanceBalance 960 ml 480 ml 1120 ml Exam General: Adequately build 77 year-old female sitting up eating dinner, no distress. HEENT: Normocephalic, atraumatic. Eyes: Anicteric sclerae, conjunctivae clear. ENT: Nasal septum midline, oral mucosa moist. Neck supple, no JVD noticed. Respiratory: Bilaterally diminished breath sounds. No use of accessory muscles of respiration. Bilateral expiratory wheezing. Cardiovascular: S1, S2 heard. Regular rate and rhythm. Abdomen: Soft, nontender, and nondistended. Bowel sounds positive in all 4 quadrants. Extremities: No cyanosis, no clubbing. Trace bilateral lower extremity edema. Peripheral pulses palpable. Skin: Normal skin turgor. No skin rashes. Medications Medication Current Medications IV Flush (NS 3 ml) 3 ml PER PROTOCOL IV ; Start 10/15/18 at 00:30 Ondansetron HCl (Zofran Inj) 4 mg Q6H PRN IV NAUSEA AND/OR VOMITING; Start 10/15/18 at 00:30 Acetaminophen (Tylenol Tab) 650 mg Q6H PRN PO PAIN LEVEL 1-3 OR FEVER; Start 10/15/18 at 00:30 Albuterol/ Ipratropium (Duoneb) 3 ml Q4H RESP THERAPY PRN HHN WHEEZING; Start 10/15/18 at 01:00 Albuterol/ Ipratropium (Duoneb) 3 ml Q4H RESP THERAPY HHN Last administered on 10/26/18 13:10; Admin Dose 3 ML; Start 10/15/18 at 01:00 Amlodipine Besylate (Norvasc) 5 mg DAILY PO Last administered on 10/26/18 08:41; Admin Dose 5 MG; Start 10/15/18 at 09:00 Diclofenac Sodium (Voltaren) 50 mg BID PO Last administered on 10/26/18 08:41; Admin Dose 50 MG; Start 10/15/18 at 09:00 Pantoprazole (Protonix Tab) 40 mg DAILY@06 PO Last administered on 10/26/18 05:26; Admin Dose 40 MG; Start 10/16/18 at 06:00 Levofloxacin (Levaquin) 750 mg DAILY@06 PO Last administered on 10/26/18 05:26; Admin Dose 750 MG; Start 10/17/18 at 06:00; Stop 10/27/18 at 05:59 Acetylcysteine (Mucomyst) 2 ml Q6H RESP THERAPY NEB Last administered on 13:10; Admin Dose 2 ML; Start 10/17/18 at 20:00 Docusate Sodium (Colace) 200 mg Q12H PRN PO CONSTIPATION Last administered on 10/25/18 21:25; Admin Dose 200 MG; Start 10/19/18 at 12:30 Sodium Chloride (Deep Sea) 1 spray PRN PRN NASAL NASAL CONGESTION Last administered on 10/26/18 08:42; Admin Dose 1 SPRAY; Start 10/19/18 at 11:30 Montelukast Sodium (Singulair) 10 mg HS PO Last administered on 10/25/18 21:25; Admin Dose 10 MG; Start 10/20/18 at 21:00 Tiotropium [place] (Spiriva) 1 inh DAILY INH Last administered on 10/26/18 08:41; Admin Dose 1 INH; Start 10/20/18 at 17:00 Bisacodyl (Dulcolax) 10 mg DAILY PRN PO CONSTIPATION Last administered on 10/20/18 20:55; Admin Dose 10 MG; Start 10/20/18 at 16:00 Fluticasone/ Vilanterol (Breo Ellipta 200-25 Mcg Inh) 1 inh DAILY INH Last administered on 10/26/18 08:41; Admin Dose 1 INH; Start 10/22/18 at 09:00 Theophylline (Sp-Dur) 300 mg DAILY PO Last administered on 10/26/18 08:41; Admin Dose 300 MG; Start 10/21/18 at 14:00 Methylprednisolone Sodium Succinate (Solu-Medrol) 60 mg Q8 IV Last administered on 10/26/18 14:17; Admin Dose 60 MG; Start 10/22/18 at 22:00 Enoxaparin Sodium (Lovenox) 40 mg DAILY SC Last administered on 10/26/18 08:39; Admin Dose 40 MG; Start 10/23/18 at 09:00 MATHIEU VYAS MD Oct 26, 2018 15:33
--- NOTE | 2018-10-26 17:00 | NUR ---
NURSE NOTES: Patient alert and oriented x 4, able to make needs known. No SOB or distress. on oxygen via nasal cannula. Breathing treatments were given by RT as ordered. All due medications were given tolerated well. Assessed for pain. Denies any pain or discomforts. Tolerating well the use of incentive spirometer as ordered. safety precautions observed at all times. Encouraged to use call light and telephone whenever assistance is needed. Patient continued to refuse bed and chair alarm. Explained the importance of the bed and chair alarm but still patient refused. Will continue to monitor. Will endorse accordingly to next shift for continuity of care.
[2018-10-26 20:53] VITALS: BP 133/65; PULSE 104; RESP 20
[2018-10-26] MEDS: predniSONE 50 MG TAB PO SCH (21:21)
[2018-10-26] MEDS: MONTELUKAST 10 MG TAB PO SCH (21:21)
[2018-10-27] MEDS: ALBUTEROL/IPRATROPIUM (NEB) 3 ML AMP HHN SCH ×4 (01:00→12:43)
[2018-10-27] MEDS: ACETYLCYSTEINE 20% 4 ML VIAL NEB SCH ×3 (01:03→14:00)
[2018-10-27 02:04] VITALS: BP 115/58; PULSE 80; RESP 18
[2018-10-27] MEDS: PANTOPRAZOLE (EC) 40 MG TAB PO SCH (06:08)
[2018-10-27 08:00] VITALS: BP 126/65; PULSE 87; RESP 20
[2018-10-27] MEDS: DICLOFENAC (EC) 25 MG TAB PO SCH (08:53)
[2018-10-27] MEDS: predniSONE 50 MG TAB PO SCH (08:54)
[2018-10-27] MEDS: THEOPHYLLINE (SR) 300 MG TAB PO SCH (08:54)
[2018-10-27] MEDS: AMLODIPINE 5 MG TAB PO SCH (08:54)
[2018-10-27] MEDS: TIOTROPIUM 18 MCG CAPSULE INHA DEV INH SCH (08:55)
[2018-10-27] MEDS: ENOXAPARIN 40 MG/0.4 ML SYG SC SCH ×2 (08:57→09:00)
[2018-10-27] MEDS: FLUTICASONE/VILANTEROL 200-25 INH DEVICE INH SCH (08:58)
--- NOTE | 2018-10-27 10:12 | CONS ---
Assessment/Plan Assessment/Plan Assessment/Plan (Daily) Assessment and recommendations; 1. Patient admitted with acute bronchitis with severe wheezing with very slow and gradual clinical improvement. Decrease prednisone to 40 mg daily with further tapering in 24-48 hours. Consultation Date/Type/Reason Admit Date/Time Oct 14, 2018 at 22:32 Initial Consult Date 10/23/18 Type of Consult Pulmonary Patient is a pleasant 77-year-old lady who came into the hospital with a few days history of coughing, chest congestion and wheezing. Patient was diagnosed with asthma exacerbation and started on appropriate bronchodilator regimen with Levaquin. However after decreasing Solu-Medrol dosing patient developed worsening wheezing requiring increased supplemental dosing yesterday. Patient is feeling somewhat better but still complains of mild wheezing with scant cough without any sputum production.. Denies any fever, chills, body aches or myalgias. Past medical history; 1. History of hypertension. 2. Asthma. Medications; reviewed. Allergies; none. Social history; patient has been a lifelong non-smoker. Family history; noncontributory. Occupational history; patient has been a housewife. Review of systems; denies any headache, sinus symptoms. Any seizures. Any sore throat, dysphagia. Compressive very minimal cough and wheezing. Denies any sputum production, hemoptysis any fever or chills. Any chest pain. Denies any abdominal pain, nausea vomiting. Any body aches or myalgias. Any orthopnea. Any edema. Any GI or urinary symptoms. Any weight loss. Denies any chronic symptoms of asthma. General exam; elderly female, awake alert, currently no distress. Sitting in a chair by bedside. Date/Time of Note DATE: 10/27/18 TIME: 10:11 24 HR Interval Summary Free Text/Dictation Patient's condition is gradually improving. He still complains of chest congestion. General exam; elderly female, awake alert, sitting in a chair by bedside. Currently no distress. Exam/Review of Systems Exam Vitals Vital Signs Date Temp Pulse Resp B/P (MAP) Pulse Ox O2 O2 Flow FiO2 Time Delivery Rate 10/27/18 3.0 08:15 10/27/18 98.6 87 20 126/65 96 08:00 (85) 10/26/18 Nasal 20:00 Cannula Intake and Output 10/26/18 10/26/18 10/27/18 1515:00 23:00 07:00 IntakeIntake Total 600 ml 490 ml 600 ml BalanceBalance 600 ml 490 ml 600 ml Exam HEENT exam; supple neck, no JVD. No lymphadenopathy. Midline trachea. No thyromegaly. No neck masses. Chest exam; diminished but clear breath sounds. No added sounds. S1-S2 audible, no murmurs. Regular rhythm. Abdomen exam; soft, nontender. No organomegaly. Bowel sounds audible. Extremity exam; no peripheral edema or clubbing. ROLLER PRINTER exam; no focal deficit. Results Result Diagram: 10/25/18 1004 10/25/18 1004 Medications Medication Current Medications IV Flush (NS 3 ml) 3 ml PER PROTOCOL IV ; Start 10/15/18 at 00:30 Ondansetron HCl (Zofran Inj) 4 mg Q6H PRN IV NAUSEA AND/OR VOMITING; Start 10/15/18 at 00:30 Acetaminophen (Tylenol Tab) 650 mg Q6H PRN PO PAIN LEVEL 1-3 OR FEVER; Start 10/15/18 at 00:30 Albuterol/ Ipratropium (Duoneb) 3 ml Q4H RESP THERAPY PRN HHN WHEEZING; Start 10/15/18 at 01:00 Albuterol/ Ipratropium (Duoneb) 3 ml Q4H RESP THERAPY HHN Last administered on 10/26/18at 16:48; Admin Dose 3 ML; Start 10/15/18 at 01:00 Amlodipine Besylate (Norvasc) 5 mg DAILY PO Last administered on 10/27/18at 08:54; Admin Dose 5 MG; Start 10/15/18 at 09:00 Diclofenac Sodium (Voltaren) 50 mg BID PO Last administered on 10/27/18at 08:53; Admin Dose 50 MG; Start 10/15/18 at 09:00 Pantoprazole (Protonix Tab) 40 mg DAILY@06 PO Last administered on 10/27/18at 06:08; Admin Dose 40 MG; Start 10/16/18 at 06:00 Acetylcysteine (Mucomyst) 2 ml Q6H RESP THERAPY NEB Last administered on 10/26/18at 13:10; Admin Dose 2 ML; Start 10/17/18 at 20:00 Docusate Sodium (Colace) 200 mg Q12H PRN PO CONSTIPATION Last administered on 10/25/18 21:25; Admin Dose 200 MG; Start 10/19/18 at 12:30 Sodium Chloride (Deep Sea) 1 spray PRN PRN NASAL NASAL CONGESTION Last adm inistered on 10/26/18 08:42; Admin Dose 1 SPRAY; Start 10/19/18 at 11:30 Montelukast Sodium (Singulair) 10 mg HS PO Last administered on 10/26/18 21:21; Admin Dose 10 MG; Start 10/20/18 at 21:00 Tiotropium [place] (Spiriva) 1 inh DAILY INH Last administered on 10/27/18 08:55; Admin Dose 1 INH; Start 10/20/18 at 17:00 Bisacodyl (Dulcolax) 10 mg DAILY PRN PO CONSTIPATION Last administered on 20:55; Admin Dose 10 MG; Start 10/20/18 at 16:00 Fluticasone/ Vilanterol (Breo Ellipta 200-25 Mcg Inh) 1 inh DAILY INH Last administered on 10/27/18 08:58; Admin Dose 1 INH; Start 10/22/18 at 09:00 Theophylline (Sp-Dur) 300 mg DAILY PO Last administered on 10/27/18 08:54; Admin Dose 300 MG; Start 10/21/18 at 14:00 Enoxaparin Sodium (Lovenox) 40 mg DAILY SC Last administered on 10/26/18 08:39; Admin Dose 40 MG; Start 10/23/18 at 09:00 Prednisone (Prednisone) 50 mg Q12 PO Last administered on 10/27/18 08:54; Admin Dose 50 MG; Start 10/26/18 at 21:00 BESSY WORTHINGTON Oct 27, 2018 10:12
[2018-10-27] MEDS: SALINE 0.65% 45 ML NAS SPRAY NASAL PRN (12:16)
[2018-10-27] MEDS ORDERED: PRED20TA PO (12:50)
--- NOTE | 2018-10-27 12:51 | PDOCDIS ---
Discharge Instructions DIAGNOSIS Discharge Diagnosis COPD exacerbation, pneumonia CONDITION [id number] Patient Condition: [id number] Good HOME CARE INSTRUCTIONS: [id number] Diet Instructions: Crher0z Regular [id number] Special Diet: [id number] low cholesterol ACTIVITY: [id number] Activity Restrictions: [id number] No Restrictions FOLLOW UP/APPOINTMENTS Follow-up Plan 1. Take all medications as prescribed. 2. Finish a 5 day course of prednisone. 3. See your primary care doctor in 1-2 weeks. 4. Return to the emergency room for worsening shortness of breath. 1. [place] todos los medicamentos segn lo prescrito. 2. Termine un curso de 5 mcclellan de prednisona. 3. Consulte a ochoa mdico de atencin primaria en 1-2 semanas. 4. Regrese a la zunilda de emergencias para empeorar la dificultad para respirar. MATHIEU VYAS MD Oct 27, 2018 12:51
--- NOTE | 2018-10-27 15:42 | NUR ---
Discharge teaching and instructions given with interpretive services, paper roller Ezio. Pt verbalized understanding. All belongings accounted for. Pt off unit with oxygen by wheelchair with volunteer and . No signs of discomfort or distress. No SOB.
--- NOTE | 2018-10-27 16:13 | DS ---
Date/Time of Note Date/Time of Note DATE: 10/27/18 TIME: 16:11 Discharge Summary Admission/Discharge Info Admit Date/Time Oct 14, 2018 at 22:32 Discharge Date/Time Oct 27, 2018 at 15:35 Discharge Diagnosis COPD exacerbation, pneumonia Patient Condition: Good Consults Pulmonary medicine Hx of Present Illness Chief complaint: Cough This is a 77-year-old female who presented originally to [facility] to [facility] with complaints of cough times 3 days. She reported was a productive cough. SHe did report shortness of breath and productive of yellow sputum. Den ies any fever chills or chest pain. Patient was noted to have wheezing on examination. Pertinent laboratory findings: White blood cells 10.8/hemoglobin 12.6/hematocrit 37.3/platelet count 324 Sodium 130/potassium 2.5/chloride 98/carbon dioxide 29/BUN 11/creatinine 0.5 CPK 63 troponin less than 0.06 patient did receive albuterol and Levaquin in the ED EKG: Normal sinus rhythm at approximately [address] or T wave abnormalities noted for any acute ischemia. Allergies: NKDA Medications: See [facility] Hospital Course The patient was admitted to med/surg. She was started on levofloxacin and actually finished a 10 day course. Also given bronchodilators and steroid taper. After almost two weeks in the hospital she was still hypoxic requiring oxygen and had productive cough. Per discussion with pulmonary, plan to discharge on a few more days of steroids and home oxygen. Home Meds Active Scripts Prednisone* (Prednisone*) 20 Mg Tab, 40 MG PO DAILY for 5 Days, #10 TAB Prov:MATHIEU VYAS MD 10/27/18 Reported Medications Fluticasone/Salmeterol (Fluticasone-Salmeterol 113-14) 1 Each Aer.pow.ba, 1 EACH IH BID 10/15/18 Diclofenac Sodium* (Diclofenac Sodium*) 50 Mg Tablet.dr, 50 MG PO BID, #60 TAB 10/15/18 Amlodipine Besylate* (Amlodipine Besylate*) 5 Mg Tablet, 5 MG PO DAILY, #30 TAB 10/15/18 Follow-up Plan 1. Take all medications as prescribed. 2. Finish a 5 day course of prednisone. 3. See your primary care doctor in 1-2 weeks. 4. Return to the emergency room for worsening shortness of breath. 1. [place] todos los medicamentos segn lo prescrito. 2. Termine un curso de 5 mcclellan de prednisona. 3. Consulte a ochoa mdico de atencin primaria en 1-2 semanas. 4. Regrese a la zunilda de emergencias para empeorar la dificultad para respirar. Primary Care Provider Iris Parofredon Time spent on discharge: > 30 minutes MATHIEU VYAS MD Oct 27, 2018 16:13
[2018-10-28] MEDS ORDERED: predniSONE 20 MG TAB PO SCH (09:00)
== END 2018-10-27 15:35 | disposition home or self-care (01) | DRG 193 ==
LOC: TEL 22:32 → PP2 10-19 00:20
PROVIDERS: ADMIT Internal Medicine; ATTEND Internal Medicine
DX: J18.9 Pneumonia, unspecified organism (principal); J96.01 Acute respiratory failure with hypoxia; J44.0 Chronic obstructive pulmonary disease with (acute) lower respiratory infection; J45.41 Moderate persistent asthma with (acute) exacerbation; J98.11 Atelectasis; J44.1 Chronic obstructive pulmonary disease with (acute) exacerbation; I10 Essential (primary) hypertension; E66.9 Obesity, unspecified; K59.00 Constipation, unspecified; Z68.35 Body mass index [BMI] 35.0-35.9, adult
CPT/HCPCS: 71045; 71275; 80048; 80053; 80061; 80198; 81001; 83036; 83605; 83735; 84100; 84443; 85025; 87040; 87086; 94640; 94664; C9113; J1650; J1956; J2920; J2930; J7512; Q9967